=== PATIENT | male | born 1980 | race Caucasian/White ===

== ENCOUNTER 2019-05-07 09:54 | Emergency (ER) | payer BC, OTHER ==
--- NOTE | 2019-05-07 11:25 | RAD REPORT ---
EXAM DESCRIPTION: RAD - Hand Left 3 View - 05/07/2019 11:13 am CLINICAL HISTORY: crush injury L 5th digit;Pain COMPARISON: No comparisons FINDINGS: Soft tissue swelling affects the fifth finger. No fracture seen.
[2019-05-07] MEDS ORDERED: LIDOCAINE 1% MPF 5 ML VIAL ONE (11:47)
--- NOTE | 2019-05-07 12:39 | ER ---
Nurse's Notes [facility] Name: Rene Killian Jr Age: 38 yrs Sex: Male : 1980 Arrival Date: 05/07/2019 Time: 09:55 Bed 10 Private MD: Diagnosis: Laceration without foreign body of left little finger without damage to nail;Crushing injury of left little finger Presentation: 05/07 10:33 Presenting complaint: Patient states: Smashed L fifth digit between two heavy metal ss storage containers at 0845 this AM. Transition of care: patient was not received from another setting of care. Onset of symptoms was May 07, 2019. Risk Assessment: Do you want to hurt yourself or someone else? Patient reports no desire to harm self or others. Initial Sepsis Screen: Does the patient meet any 2 criteria? No. Patient's initial sepsis screen is negative. Does the patient have a suspected source of infection? No. Patient's initial sepsis screen is negative. Care prior to arrival: None. 10:33 Method Of Arrival: Ambulatory ss 10:33 Acuity: ERLINDA 4 ss Triage Assessment: 11:00 General: Appears in no apparent distress. Injury Description: Crush injury. tw2 Historical: - Allergies: 10:35 HYDROCODONE (Hives); ss 10:35 Latex, Natural Rubber; ss 10:35 PROPOFOL; ss 10:35 Tape; ss - PMHx: 10:35 Asthma; Bronchitis; Cellulitis; Hypertension; Pneumonia; ss - PSHx: 10:35 Knee surgery; Appendectomy; ss - Immunization history:: Last tetanus immunization: up to date < 10 years ago. - Social history:: Smoking status: Patient uses tobacco products, chewing tobacco. - Ebola Screening: : Patient denies exposure to infectious person Patient denies travel to an Ebola-affected area in the 21 days before illness onset. Screenin:05 Abuse screen: Denies threats or abuse. Nutritional screening: No deficits noted. tw2 Tuberculosis screening: No symptoms or risk factors identified. Fall Risk None identified. Assessment: 11:00 General: Appears in no apparent distress. obese, Behavior is calm, cooperative, tw2 appropriate for age. Pain: Complains of pain in dorsal aspect of distal phalanx of left little finger, dorsal aspect of middle phalanx of left little finger, palmar aspect of distal phalanx of left little finger and palmar aspect of middle phalanx of left little finger. Neuro: Level of Consciousness is awake, alert, obeys commands, Oriented to person, place, time, situation. Cardiovascular: Patient's skin is warm and dry. Respiratory: Airway is patent Respiratory effort is even, unlabored, Respiratory pattern is regular, symmetrical. Derm: laceration noted on medial border of 5th finger of left hand. Musculoskeletal: Swelling present in dorsal aspect of distal phalanx of left little finger, dorsal aspect of middle phalanx of left little finger, palmar aspect of distal phalanx of left little finger and palmar aspect of middle phalanx of left little finger Reports pain in dorsal aspect of distal phalanx of left little finger, dorsal aspect of middle phalanx of left little finger, palmar aspect of distal phalanx of left little finger, palmar aspect of middle phalanx of left little finger and left little fingernail. Musculoskeletal: Circulation, motion, and sensation intact. 13:04 Reassessment: Patient appears in no apparent distress at this time. Patient and/or tw2 family updated on plan of care and expected duration. Pain level reassessed. Patient is alert, oriented x 3, equal unlabored respirations, skin warm/dry/pink. Vital Signs: 10:35 BP 152 / 93; Pulse 68; Resp 17; Temp 98.4(TE); Pulse Ox 97% on R/A; Weight 158.76 kg; ss Height 5 ft. 10 in. (177.80 cm); Pain 7/10; 10:35 Body Mass Index 50.22 (158.76 kg, 177.80 cm) ED Course: 09:55 Patient arrived in ED. as 10:34 Triage completed. ss 10:35 Arm band placed on right wrist. ss 10:59 Bed in low position. Call light in reach. Adult w/ patient. tw2 11:05 Shyanne Olvera RN is Primary Nurse. tw2 11:07 Nathan Meraz NP is PHCP. pm1 11:07 Remi Pardo MD is Attending Physician. pm1 11:15 XRAY Hand LEFT 3 View In Process Unspecified. EDMS 11:35 Patient did not have IV access during this emergency room visit. Wound care: located on tw2 left hand was cleaned with with NS at this time, pt tolerated well.. 12:38 Imtiaz Lowe MD is Referral Physician. pm1 13:04 Assist provider with laceration repair on left little fingernail and palmar aspect of tw2 middle phalanx of left little finger and palmar aspect of distal phalanx of left little finger and dorsal aspect of middle phalanx of left little finger and dorsal aspect of distal phalanx of left little finger that was 2.5 cm. or less using sutures. Set up tray. Performed by Nathan Meraz [employer]CH[employer]ISING Dressed with 4X4s, Neosporin, Patient tolerated well. 17:10 Primary Nurse role handed off by Shyanne Olvera RN tw2 Administered Medications: 12:22 Drug: Lidocaine (1 %) 5 ml Volume: 5 ml; Route: Infiltration; tw2 Outcome: 12:39 Discharge ordered by MD. pm1 13:05 Discharged to home ambulatory. tw2 13:05 Condition: stable 13:05 Discharge instructions given to patient, Instructed on discharge instructions, follow up and referral plans. medication usage, wound care, Demonstrated understanding of instructions, follow-up care, medications, wound care, Prescriptions given X 1. 13:07 Patient left the ED. tw2 17:13 Patient left the ED. tw2 Signatures: Dispatcher [employer] EDMS Peg Chua Shelby, RN RN ss Marinas, Patrick, NP [employer] pm1 Shyanne Olvera RN RN tw2 Corrections: (The following items were deleted from the chart) 13:05 13:04 No provider procedures requiring assistance completed. tw2 tw2
--- NOTE | 2019-05-07 12:40 | EDPHYS ---
Physician Documentation [facility] Name: Rene Killian Jr Age: 38 yrs Sex: Male : 1980 Arrival Date: 05/07/2019 Time: 09:55 Bed 10 Private MD: ED Physician Remi Pardo HPI: 05/07 11:37 This 38 yrs old Male presents to ER via Ambulatory with complaints of Left pm1 Little Finger Injury. 11:37 Trauma demographics: Location of Injury: The injury occurred at work. Mechanism of pm1 injury: Crush injury: from from a heavy object. Associated injuries: The patient sustained left little finger, laceration, swelling. Onset: The symptoms/episode began/occurred just prior to arrival. The patient has not experienced similar symptoms in the past. Patient was moving heavy containers and accidentally crushed his left little finger between two of them resulting in swelling and tenderness to the distal aspect of fifth little finger, laceration to lateral aspect of DIP and laceration to palmar aspect of left fifth distal phalanx . Historical: - Allergies: 10:35 HYDROCODONE (Hives); ss 10:35 Latex, Natural Rubber; ss 10:35 PROPOFOL; ss 10:35 Tape; ss - PMHx: 10:35 Asthma; Bronchitis; Cellulitis; Hypertension; Pneumonia; ss - PSHx: 10:35 Knee surgery; Appendectomy; ss - Immunization history:: Last tetanus immunization: up to date < 10 years ago. - Social history:: Smoking status: Patient uses tobacco products, chewing tobacco. - Ebola Screening: : Patient denies exposure to infectious person Patient denies travel to an Ebola-affected area in the 21 days before illness onset. ROS: 11:37 Constitutional: Negative for fever, chills, and weight loss, Cardiovascular: Negative pm1 for chest pain, palpitations, and edema, Respiratory: Negative for shortness of breath, cough, wheezing, and pleuritic chest pain, Abdomen/GI: Negative for abdominal pain, nausea, vomiting, diarrhea, and constipation, Back: Negative for injury and pain. 11:37 Neuro: Negative for headache, weakness, numbness, tingling, and seizure. 11:37 MS/extremity: Positive for pain, swelling, tenderness, of the distal phalanx of left little finger, inability to bend left 5th finger DIP joint, Negative for deformity. 11:37 Skin: Positive for laceration(s), of the palmar aspect of distal phalanx of left little finger and lateral aspect of DIP of left fifth finger. 11:37 All other systems are negative. pm1 Exam: 11:37 Constitutional: This is a well developed, well nourished patient who is awake, alert, pm1 and in no acute distress. Head/Face: Normocephalic, atraumatic. Neck: Trachea midline, no thyromegaly or masses palpated, and no cervical lymphadenopathy. Supple, full range of motion without nuchal rigidity, or vertebral point tenderness. No Meningismus. 11:37 Chest/axilla: Normal chest wall appearance and motion. Nontender with no deformity. pm1 No lesions are appreciated. Cardiovascular: Regular rate and rhythm with a normal S1 and S2. No gallops, murmurs, or rubs. Normal PMI, no JVD. No pulse deficits. Respiratory: Lungs have equal breath sounds bilaterally, clear to auscultation and percussion. No rales, rhonchi or wheezes noted. No increased work of breathing, no retractions or nasal flaring. Back: No spinal tenderness. No costovertebral tenderness. Full range of motion. 11:37 Musculoskeletal/extremity: Extremities: grossly normal except: noted in the distal phalanx of left little finger: swelling, tenderness, laceration to lateral aspect of DIP left little finger and palmar aspect of distal phalanx of left fifth finger. Vital Signs: 10:35 BP 152 / 93; Pulse 68; Resp 17; Temp 98.4(TE); Pulse Ox 97% on R/A; Weight 158.76 kg; ss Height 5 ft. 10 in. (177.80 cm); Pain 7/10; 10:35 Body Mass Index 50.22 (158.76 kg, 177.80 cm) ss Laceration: 12:36 Wound Repair of 2.5cm ( 1.0in ) subcutaneous laceration to palmar aspect of distal pm1 phalanx of left little finger. Linear shaped.. Distal neuro/vascular/tendon intact. Anesthesia: Digital block administered with 2 mls of 1% lidocaine. Wound prep: Extensive cleansing with hibiclenz by nurse, Wound irrigation, Wound explored extensively, Copious irrigation. Skin closed with 7 5-0 Prolene using simple sutures and sterile technique. Dressed with finger splint and neosporin. Patient tolerated well. MDM: 11:08 Patient medically screened. [facility] 12:36 Data reviewed: vital signs. Data interpreted: Pulse oximetry: on room air is 97 %. pm1 Interpretation: normal. Counseling: I had a detailed discussion with the patient and/or guardian regarding: the historical points, exam findings, and any diagnostic results supporting the discharge/admit diagnosis, radiology results, the need for outpatient follow up, for definitive care, a hand specialist, to return to the emergency department if symptoms worsen or persist or if there are any questions or concerns that arise at home. 05/07 10:36 Order name: XRAY Hand LEFT 3 View; Complete Time: 11:37 ss 05/07 11:20 Order name: Ice pack; Complete Time: 11:20 pm1 05/07 11:46 Order name: Prolene, Sutures; Complete Time: 12:54 pm1 05/07 11:46 Order name: Dressing - Wound; Complete Time: 12:54 pm1 05/07 11:46 Order name: Gloves, Sterile; Complete Time: 11:55 pm1 05/07 11:46 Order name: Setup Suture Tray; Complete Time: 11:55 pm1 05/07 12:45 Order name: Splint - Finger; Complete Time: 12:54 pm1 Administered Medications: 12:22 Drug: Lidocaine (1 %) 5 ml Volume: 5 ml; Route: Infiltration; tw2 Disposition: 05/08 07:06 Co-signature as Attending Physician, Remi Pardo MD I agree with the assessment and [facility] plan of care. Disposition: 05/07/19 12:39 Discharged to Home. Impression: Crushing injury of left little finger, Laceration without foreign body of left little finger without damage to nail. - Condition is Stable. - Discharge Instructions: Laceration Care, Adult, Crush Injury of the Hand. - Prescriptions for Keflex 500 mg Oral Capsule - take 1 capsule by ORAL route every 6 hours for 10 days; 40 capsule. - Medication Reconciliation Form, Thank You Letter, Antibiotic Education, Prescription Opioid Use, Work release form form. - Follow up: Emergency Department; When: As needed; Reason: Worsening of condition. Follow up: Imtiaz Lowe MD; When: 2 - 3 days; Reason: Recheck today's complaints, Continuance of care, Re-evaluation by your physician. - Problem is new. - Symptoms have improved. Signatures: Dispatcher [employer] EDMS Remi Pardo MD MD cha Smirch, Shelby, AJ RN ss Nathan Meraz, [employer]ER pm1 Shyanne Olvera RN RN tw2 Corrections: (The following items were deleted from the chart) 05/07 12:59 12:39 05/07/2019 12:39 Discharged to Home. Impression: Crushing injury of left middle pm1 finger; Laceration without foreign body of left little finger without damage to nail. Condition is Stable. Forms are Work release form, Medication Reconciliation Form, Thank You Letter, Antibiotic Education, Prescription Opioid Use. Follow up: Emergency Department; When: As needed; Reason: Worsening of condition. Follow up: Imtiaz Lowe; When: 2 - 3 days; Reason: Recheck today's complaints, Continuance of care, Re-evaluation by your physician. Problem is new. Symptoms have improved. pm1 13:07 12:59 05/07/2019 12:39 Discharged to Home. Impression: Crushing injury of left little tw2 finger; Laceration without foreign body of left little finger without damage to nail. Condition is Stable. Discharge Instructions: Laceration Care, Adult, Crush Injury of the Hand. Prescriptions for Keflex 500 mg Oral Capsule - take 1 capsule by ORAL route every 6 hours for 10 days; 40 capsule. and Forms are Work release form, Medication Reconciliation Form, Thank You Letter, Antibiotic Education, Prescription Opioid Use. Follow up: Emergency Department; When: As needed; Reason: Worsening of condition. Follow up: Imtiaz Lowe; When: 2 - 3 days; Reason: Recheck today's complaints, Continuance of care, Re-evaluation by your physician. Problem is new. Symptoms have improved. pm1 17:13 13:07 05/07/2019 12:39 Discharged to Home. Impression: Crushing injury of left little tw2 fingerLaceration without foreign body of left little finger without damage to nail. Condition is Stable. Discharge Instructions: Laceration Care, Adult, Crush Injury of the Hand. Prescriptions for Keflex 500 mg Oral Capsule - take 1 capsule by ORAL route every 6 hours for 10 days; 40 capsule. and Forms are Work release form, Medication Reconciliation Form, Thank You Letter, Antibiotic Education, Prescription Opioid Use. Follow up: Emergency Department; When: As needed; Reason: Worsening of condition. Follow up: Imtiaz Lowe; When: 2 - 3 days; Reason: Recheck today's complaints, Continuance of care, Re-evaluation by your physician. Problem is new. Symptoms have improved. tw2
[2019-05-07 13:26] VITALS: BP 152/93; TEMP 98.4; O2SAT 97
== END 2019-05-07 17:13 | disposition home or self-care (01) ==
LOC: ER 09:54
PROC: 0JQK0ZZ Repair Left Hand Subcutaneous Tissue and Fascia, Open Approach (ICD-10-PCS; principal; 2019-05-07)
DX: S61.217A Laceration without foreign body of left little finger without damage to nail, initial encounter (principal); W23.0XXA Caught, crushed, jammed, or pinched between moving objects, initial encounter; Y93.89 Activity, other specified; Y92.9 Unspecified place or not applicable
CPT/HCPCS: 99284

== ENCOUNTER 2019-05-10 17:22 | Emergency (ER) | payer OTHER ==
--- NOTE | 2019-05-10 17:58 | ER ---
Nurse's Notes [facility] Name: Rene Killian Jr Age: 38 yrs Sex: Male : 1980 Arrival Date: 05/10/2019 Time: 17:23 Bed Waiting Private MD: Diagnosis: Encounter for change or removal of nonsurgical wound dressing Presentation: 05/10 17:50 Presenting complaint: Patient states: On Monday something fell on my left pinky and la1 lavern looked at it and wanted me to be seen here. Transition of care: patient was not received from another setting of care. Onset of symptoms was May 10, 2019. Risk Assessment: Do you want to hurt yourself or someone else? Patient reports no desire to harm self or others. Initial Sepsis Screen: Does the patient meet any 2 criteria? No. Patient's initial sepsis screen is negative. Does the patient have a suspected source of infection? No. Patient's initial sepsis screen is negative. Care prior to arrival: None. 17:50 Method Of Arrival: Ambulatory la1 17:50 Acuity: ERLINDA 4 la1 Historical: - Immunization history:: Adult Immunizations up to date. - Social history:: Smoking status: Patient/guardian denies using tobacco. - Ebola Screening: : No symptoms or risks identified at this time. Screenin:55 Abuse screen: Denies threats or abuse. Nutritional screening: No deficits noted. la1 Tuberculosis screening: No symptoms or risk factors identified. Fall Risk None identified. Assessment: 17:52 General: Appears in no apparent distress. Behavior is calm, cooperative. Pain: la1 Complains of pain in dorsal aspect of middle phalanx of left little finger and palmar aspect of middle phalanx of left little finger. Neuro: Level of Consciousness is awake, alert, obeys commands, Oriented to person, place, time, situation. Cardiovascular: Capillary refill < 3 seconds Patient's skin is warm and dry. Respiratory: Airway is patent Respiratory effort is even, unlabored, Respiratory pattern is regular, symmetrical. Musculoskeletal: Circulation, motion, and sensation intact. Capillary refill < 3 seconds, is brisk, in bilateral wound to pinky well approximated, slightly limited ROM. Vital Signs: 17:51 BP 147 / 97; Pulse 78; Resp 16; Temp 98.3; Pulse Ox 100% on R/A; la1 ED Course: 17:23 Patient arrived in ED. as 17:50 Triage completed. la1 17:50 Arm band placed on right wrist. la1 17:53 Gretchen Cantu FNP-C [facility]. snw 17:53 Mandeep Baker MD is Attending Physician. snw 17:55 Patient has correct armband on for positive identification. la1 17:56 Imtiaz Lowe MD is Referral Physician. snw 18:28 No provider procedures requiring assistance completed. Patient did not have IV access la1 during this emergency room visit. Administered Medications: No medications were administered Outcome: 17:57 Discharge ordered by MD. snw 18:28 Discharged to home ambulatory. la1 18:28 Condition: stable 18:28 Discharge instructions given to patient, Instructed on discharge instructions, follow up and referral plans. medication usage, Demonstrated understanding of instructions, follow-up care, medications, Prescriptions given X 1. 18:28 Patient left the ED. la1 Signatures: Gretchen Cantu FNP-C [employer]-CsnPeg He Lee, RN RN la1
--- NOTE | 2019-05-10 17:58 | EDPHYS ---
Physician Documentation [facility] Name: Rene Killian Jr Age: 38 yrs Sex: Male : 1980 Arrival Date: 05/10/2019 Time: 17:23 Bed Waiting Private MD: ED Physician Mandeep Baker HPI: 05/10 20:59 This 38 yrs old Male presents to ER via Ambulatory with complaints of Wound snw Check. 20:59 Patient presents to ED for recheck of: laceration. The affected area is on the palmar snw aspect of distal phalanx of left little finger. Previous treatment: The patient was initially treated 3 day(s) ago. Progress: The patient reports excellent improvement in the affected area. There has been resolution, improvement, or non-development of any drainage, fever, pain, redness or swelling. The patient has not experienced similar symptoms in the past. The patient has not recently seen a physician. Historical: - Immunization history:: Adult Immunizations up to date. - Social history:: Smoking status: Patient/guardian denies using tobacco. - Ebola Screening: : No symptoms or risks identified at this time. ROS: 20:58 Constitutional: Negative for fever, chills, and weight loss, Eyes: Negative for injury, snw pain, redness, and discharge, ENT: Negative for injury, pain, and discharge, Neck: Negative for injury, pain, and swelling, Cardiovascular: Negative for chest pain, palpitations, and edema, Respiratory: Negative for shortness of breath, cough, wheezing, and pleuritic chest pain, Abdomen/GI: Negative for abdominal pain, nausea, vomiting, diarrhea, and constipation, Back: Negative for injury and pain, : Negative for injury, bleeding, discharge, and swelling, MS/Extremity: Negative for injury and deformity, Neuro: Negative for headache, weakness, numbness, tingling, and seizure, Psych: Negative for depression, anxiety, suicide ideation, homicidal ideation, and hallucinations. 20:58 Skin: Positive for pt states left 5th finger has been draining and "meat was hanging out" around the sutures. Exam: 17:54 Constitutional: This is a well developed, well nourished patient who is awake, alert, snw and in no acute distress. Head/Face: Normocephalic, atraumatic. Eyes: Pupils equal round and reactive to light, extra-ocular motions intact. Lids and lashes normal. Conjunctiva and sclera are non-icteric and not injected. Cornea within normal limits. Periorbital areas with no swelling, redness, or edema. ENT: Nares patent. No nasal discharge, no septal abnormalities noted. Tympanic membranes are normal and external auditory canals are clear. Oropharynx with no redness, swelling, or masses, exudates, or evidence of obstruction, uvula midline. Mucous membranes moist. Neck: Trachea midline, no thyromegaly or masses palpated, and no cervical lymphadenopathy. Supple, full range of motion without nuchal rigidity, or vertebral point tenderness. No Meningismus. Chest/axilla: Normal chest wall appearance and motion. Nontender with no deformity. No lesions are appreciated. Cardiovascular: Regular rate and rhythm with a normal S1 and S2. No gallops, murmurs, or rubs. Normal PMI, no JVD. No pulse deficits. Respiratory: Lungs have equal breath sounds bilaterally, clear to auscultation and percussion. No rales, rhonchi or wheezes noted. No increased work of breathing, no retractions or nasal flaring. Abdomen/GI: Soft, non-tender, with normal bowel sounds. No distension or tympany. No guarding or rebound. No evidence of tenderness throughout. Back: No spinal tenderness. No costovertebral tenderness. Full range of motion. Skin: Warm, dry with normal turgor. Normal color with no rashes, no lesions, and no evidence of cellulitis. Recently sutured wound to left 5th finger with sutures intact, no erythema, no discharge. Discussed with Dr. Lowe and he recommends re-eval Monday at 0900 in his office - leave sutures in place MS/ Extremity: Pulses equal, no cyanosis. Neurovascular intact. Full, normal range of motion. Neuro: Awake and alert, GCS 15, oriented to person, place, time, and situation. Cranial nerves II-XII grossly intact. Motor strength 5/5 in all extremities. Sensory grossly intact. Cerebellar exam normal. Normal gait. Psych: Awake, alert, with orientation to person, place and time. Behavior, mood, and affect are within normal limits. Vital Signs: 17:51 BP 147 / 97; Pulse 78; Resp 16; Temp 98.3; Pulse Ox 100% on R/A; la1 MDM: 17:57 Patient medically screened. snw 17:58 Data reviewed: vital signs, nurses notes. Data interpreted: Pulse oximetry: on room air snw is 100 %. Interpretation: normal. Counseling: I had a detailed discussion with the patient and/or guardian regarding: the historical points, exam findings, and any diagnostic results supporting the discharge/admit diagnosis, the presence of at least one elevated blood pressure reading (>120/80) during this emergency department visit, the need for outpatient follow up, to return to the emergency department if symptoms worsen or persist or if there are any questions or concerns that arise at home. Physician consultation: Imtiaz Lowe MD was called at 17:59, was contacted at 17:59, reassurance and f/u in office on Monday at 0900. Administered Medications: No medications were administered Disposition: 05/11 07:08 Co-signature as Attending Physician, Mandeep Baker MD. rn Disposition: 05/10/19 17:57 Discharged to Home. Impression: Encounter for change or removal of nonsurgical wound dressing. - Condition is Stable. - Discharge Instructions: How to Change Your Dressing, Stitches, Brigido, or Adhesive Wound Closure, Wound Check, Incision Care, Adult. - Prescriptions for Tylenol- Codeine #3 300-30 mg Oral Tablet - take 2 tablets by ORAL route every 6 hours As needed; 10 tablet. - Medication Reconciliation Form, Thank You Letter, Antibiotic Education, Prescription Opioid Use form. - Follow up: Imtiaz Lowe MD; When: Monday at 0900; Reason: Recheck today's complaints, Continuance of care, Re-evaluation by your physician. Signatures: Gretchen Cantu, CUSTOM HARVESTER-C CUSTOM HARVESTER-Csnw Mandeep Baker MD MD rn Attema, Lee, RN RN la1 Corrections: (The following items were deleted from the chart) 05/10 18:28 17:57 05/10/2019 17:57 Discharged to Home. Impression: Encounter for change or removal la1 of nonsurgical wound dressing. Condition is Stable. Forms are Medication Reconciliation Form, Thank You Letter, Antibiotic Education, Prescription Opioid Use. Follow up: Imtiaz Lowe; When: Monday at 0900; Reason: Recheck today's complaints, Continuance of care, Re-evaluation by your physician. snw
[2019-05-10 18:41] VITALS: BP 147/97; TEMP 98.3; O2SAT 100
== END 2019-05-10 18:28 | disposition home or self-care (01) ==
LOC: ER 17:22
DX: Z48.00 Encounter for change or removal of nonsurgical wound dressing (principal)
CPT/HCPCS: 99282

== ENCOUNTER 2019-06-16 07:22 | Emergency (ER) | payer BC, OTHER ==
[2019-06-16] MEDS ORDERED: ONDANSETRON 4 MG/2 ML VIAL ONE (07:55)
[2019-06-16] MEDS ORDERED: NA CHLORIDE 0.9% 1,000 ML ONE (07:55)
[2019-06-16] MEDS ORDERED: MORPHINE 4 MG/ML SYR ONE (07:55)
[2019-06-16 08:16] LABS: Absolute Lymphocytes (CBC) 0.3 K/uL (0.7-4.9); Basophils % 0.4 % (0-1.3); Hematocrit 49.9 % (39.6-49.0); MPV 8.2 fL (7.6-11.3); RBC Red Blood Cell Count 5.37 M/uL (4.33-5.43)
[2019-06-16 08:34] LABS: ALT/SGPT 52 U/L (12-78); AST/SGOT 29 U/L (15-37); Albumin 4.1 g/dL (3.4-5.0); Alkaline Phosphatase 93 U/L (45-117); BUN Blood Urea Nitrogen 20 mg/dL (7-18); Bicarbonate 26 mmol/L (21-32); Bilirubin Direct 0.2 mg/dL (0-0.2); Bilirubin Total 0.7 mg/dL (0.2-1.0); Glucose Level 144 mg/dL (74-106); Lipase 73 U/L (73-393); Protein, Total 7.8 g/dL (6.4-8.2); Sodium Level 139 mmol/L (136-145)
[2019-06-16 09:07] LABS: Blood Morphology Comment NOT SEEN (NOT SEEN); Platelet Estimate ADEQ
--- NOTE | 2019-06-16 09:08 | RAD REPORT ---
EXAM DESCRIPTION: CT - Abdomen Pelvis W Contrast - 06/16/2019 8:55 am CLINICAL HISTORY: EPIGASTRIC PAIN, abdominal and pelvic pain COMPARISON: CT imaging January 2015 TECHNIQUE: Biphasic, helical CT imaging of the abdomen and pelvis was performed following 100 ml non -ionic IV contrast. No oral contrast. All CT scans are performed using dose optimization technique as appropriate and may include automated exposure control or mA/KV adjustment according to patient size. FINDINGS: Calcified pleural plaquing changes posterior gutter on the left have not changed. No acute lung base finding. No pericardial thickening or effusion. Liver attenuation is borderline to mild fatty infiltrated. No focal liver lesion. No splenomegaly or focal splenic finding. No pancreatic or peripancreatic abnormality seen. Distended gallbladder noted. No biliary tree dilata tion. Gallstones can be occult on CT imaging. Symmetric renal function is seen with no hydronephrosis or suspicious renal mass. No pyelonephritis o r acute parenchymal process. Renal parenchyma is similar to comparison study. Prostate gland and semi nal vesicles are normal. No urinary bladder abnormality. No adrenal abnormalities. Moderate amount of fluid is retained within the stomach. No gastric wall thickening or mass identifie d. No duodenal abnormality seen. Patient has a few small sub centimeter mesenteric lymph nodes in the central mesenteries. Appendix is not clearly defined. No indirect evidence for appendicitis. The ryan endix is believed to be surgically absent based on history. No free air, free fluid or inflammatory stranding. No mass or bulky lymphadenopathy. Patient has a small fat filled left inguinal hernia similar to comparison. No acute finding. No suspicious bony findings. IMPRESSION: CT imaging shows no acute finding. Gallbladder is distended but not dilated. Gallstones can be occult on CT imaging. No biliary abnormal ity seen. Borderline to mild fatty infiltration the liver.
--- NOTE | 2019-06-16 10:10 | ER ---
Nurse's Notes [facility] Name: Rene Killian Jr Age: 39 yrs Sex: Male : 1980 Arrival Date: 06/16/2019 Time: 07:25 Bed 20 Private MD: None, None Diagnosis: Vomiting;Diarrhea, unspecified;Unspecified abdominal pain Presentation: 06/16 07:35 Presenting complaint: states: pt has been vomiting and having diarrhea since about iw 2 this morning,ate fried shrimp for dinner ,not tolerating fluids. Transition of care: patient was not received from another setting of care. Onset of symptoms was June 16, 2019. Risk Assessment: Do you want to hurt yourself or someone else? Patient reports no desire to harm self or others. Care prior to arrival: None. 07:35 Method Of Arrival: Ambulatory iw 07:35 Acuity: ERLINDA 3 iw 08:08 Initial Sepsis Screen: Does the patient meet any 2 criteria? No. Patient's initial em sepsis screen is negative. Does the patient have a suspected source of infection? No. Patient's initial sepsis screen is negative. Historical: - Allergies: 07:40 Latex, Natural Rubber; iw 07:40 Hydrocodone-Acetaminophen; iw 07:40 Tape; iw 07:40 PROPOFOL; iw - Home Meds: 07:52 losartan oral oral once daily [Active]; Breo Ellipta inhalation inhalation once daily iw [Active]; - PMHx: 07:40 Asthma; Hypertension; Bronchitis; Pneumonia; Cellulitis; iw - PSHx: 07:40 Appendectomy; Knee surgery; iw - Ebola Screening: : Patient negative for fever greater than or equal to 101.5 degrees Fahrenheit, and additional compatible Ebola Virus Disease symptoms Patient denies exposure to infectious person Patient denies travel to an Ebola-affected area in the 21 days before illness onset No symptoms or risks identified at this time. Screenin:05 Abuse screen: Denies threats or abuse. Nutritional screening: No deficits noted. em Tuberculosis screening: No symptoms or risk factors identified. Fall Risk None identified. Assessment: 07:55 General: Appears in no apparent distress. comfortable, Behavior is calm, cooperative, em Denies fever. Pain: Complains of pain in right upper quadrant and left upper quadrant Pain currently is 0 out of 10 on a pain scale. at worst was 8 out of 10 on a pain scale. Pain began 4 hours ago. Neuro: Level of Consciousness is awake, alert, obeys commands, Oriented to person, place, time, situation, Appropriate for age. Cardiovascular: Capillary refill < 3 seconds Patient's skin is warm and dry. Respiratory: Airway is patent Respiratory effort is even, unlabored, Respiratory pattern is regular, symmetrical. GI: Abdomen is round non-distended, Bowel sounds present X 4 quads. Abd is soft X 4 quads Abdomen is tender to palpation in right upper quadrant and left upper quadrant Reports diarrhea, nausea, vomiting, Patient currently denies bloody stool. : Denies burning with urination. Derm: Skin is intact, is healthy with good turgor, Skin is pink, warm \T\ dry. Musculoskeletal: Capillary refill < 3 seconds, Range of motion: intact in all extremities. Vital Signs: 07:47 Pulse 100; Resp 18; Temp 98.9; Pulse Ox 97% on R/A; iw 08:04 BP 138 / 78; Pulse 89; Resp 18; Pulse Ox 96% on R/A; Pain 8/10; em 09:00 BP 118 / 70; Pulse 86; Resp 18; Pulse Ox 99% on R/A; Pain 2/10; em 10:00 BP 118 / 82; Pulse 92; Resp 16; Pulse Ox 95% on R/A; Pain 2/10; em ED Course: 07:25 Patient arrived in ED. mr 07:25 None, None is Private Physician. mr 07:32 Wilfrid Tom, AJ is Primary Nurse. bp 07:33 Nathan Meraz NP is PHCP. pm1 07:33 Catalino Angulo MD is Attending Physician. pm1 07:37 Triage completed. iw 07:51 Arm band placed on. iw 07:53 Radiology exam delayed due to lab results not completed at this time. (BUN/Creatinine). bq 08:01 Initial lab(s) drawn, by me, sent to lab. Inserted saline lock: 20 gauge in left jd2 antecubital area, using aseptic technique. Blood collected. 08:05 Patient has correct armband on for positive identification. Bed in low position. Call em light in reach. Adult w/ patient. Pulse ox on. NIBP on. 08:55 CT completed. Patient tolerated procedure well. Patient moved back from CT. mw3 08:55 CT Abd/Pelvis - IV Contrast Only In Process Unspecified. EDMS 10:35 No provider procedures requiring assistance completed. IV discontinued, intact, em bleeding controlled, No redness/swelling at site. Pressure dressing applied. Administered Medications: 07:58 Drug: NS 0.9% 1000 ml Route: IV; Rate: 1000 ml; Site: left antecubital; iw 10:33 Follow up: IV Status: Order to discontinue infusion; IV Intake: 800ml em 07:59 Drug: Zofran 4 mg Route: IVP; Site: left antecubital; iw 08:21 Follow up: Response: No adverse reaction; Nausea is decreased em 08:02 Drug: morphine 4 mg Route: IVP; Site: left antecubital; iw 08:22 Follow up: Response: No adverse reaction; Marked relief of symptoms; Pain is decreased em 10:28 Drug: Bentyl 20 mg Route: PO; em 10:33 Follow up: Response: Medication administered at discharge. em Intake: 10:33 IV: 800ml; Total: 800ml. em Outcome: 10:09 Discharge ordered by MD. pm1 10:35 Discharged to home ambulatory, with family. em 10:35 Condition: good 10:35 Discharge instructions given to patient, family, Instructed on discharge instructions, follow up and referral plans. medication usage, Demonstrated understanding of instructions, follow-up care, medications, Prescriptions given X 2. 10:36 Patient left the ED. em Signatures: Dispatcher [employer] EDNY Cristian Ashlie mr ShaunAkanksha, Stanley, TEACHER EARLY CHILDHOOD DEVELOPMENT TEACHER EARLY CHILDHOOD DEVELOPMENT em Lanette Verma, Nathan Thompson RN, CORINE ZIPPER CUTTER pm1 Aldo Soriano Brian, RN RN bp Willis, Michelle mw3
--- NOTE | 2019-06-16 10:10 | EDPHYS ---
Physician Documentation [facility] Name: Rene Killian Jr Age: 39 yrs Sex: Male : 1980 Arrival Date: 06/16/2019 Time: 07:25 Bed 20 Private MD: None, None ED Physician Catalino Angulo HPI: 06/16 08:06 This 39 yrs old Male presents to ER via Ambulatory with complaints of pm1 Abdominal Pain, Vomiting/Diarrhea. 08:06 The patient presents with abdominal pain that is diffuse. Onset: The symptoms/episode pm1 began/occurred this morning, at 02:00. The symptoms do not radiate. Associated signs and symptoms: Pertinent positives: nausea, vomiting, and diarrhea, Pertinent negatives: chest pain, constipation, dysuria, fever, shortness of breath. The symptoms are described as crampy. Modifying factors: The symptoms are alleviated by nothing, the symptoms are aggravated by nothing. Severity of pain: in the emergency department the pain is unchanged. Patient with onset of abdominal pain, vomiting and diarrhea since 0200 this AM. Possible cause of diarrhea is shrimp that he ate at a restaurant last night. Historical: - Allergies: 07:40 Latex, Natural Rubber; iw 07:40 Hydrocodone-Acetaminophen; iw 07:40 Tape; iw 07:40 PROPOFOL; iw - Home Meds: 07:52 losartan oral oral once daily [Active]; Breo Ellipta inhalation inhalation once daily iw [Active]; - PMHx: 07:40 Asthma; Hypertension; Bronchitis; Pneumonia; Cellulitis; iw - PSHx: 07:40 Appendectomy; Knee surgery; iw - Ebola Screening: : Patient negative for fever greater than or equal to 101.5 degrees Fahrenheit, and additional compatible Ebola Virus Disease symptoms Patient denies exposure to infectious person Patient denies travel to an Ebola-affected area in the 21 days before illness onset No symptoms or risks identified at this time. ROS: 08:06 Constitutional: Negative for fever, chills, and weight loss, Eyes: Negative for injury, pm1 pain, redness, and discharge, ENT: Negative for injury, pain, and discharge, Neck: Negative for injury, pain, and swelling, Cardiovascular: Negative for chest pain, palpitations, and edema, Respiratory: Negative for shortness of breath, cough, wheezing, and pleuritic chest pain. 08:06 Back: Negative for injury and pain, : Negative for injury, bleeding, discharge, and swelling, MS/Extremity: Negative for injury and deformity, Skin: Negative for injury, rash, and discoloration, Neuro: Negative for headache, weakness, numbness, tingling, and seizure. 08:06 Abdomen/GI: Positive for abdominal pain, nausea, vomiting, and diarrhea, Negative for constipation, hematemesis, black/tarry stool, rectal bleeding. Exam: 08:06 Constitutional: This is a well developed, well nourished patient who is awake, alert, pm1 and in no acute distress. Head/Face: Normocephalic, atraumatic. Neck: Trachea midline, no thyromegaly or masses palpated, and no cervical lymphadenopathy. Supple, full range of motion without nuchal rigidity, or vertebral point tenderness. No Meningismus. Chest/axilla: Normal chest wall appearance and motion. Nontender with no deformity. No lesions are appreciated. Cardiovascular: Regular rate and rhythm with a normal S1 and S2. No gallops, murmurs, or rubs. Normal PMI, no JVD. No pulse deficits. Respiratory: Lungs have equal breath sounds bilaterally, clear to auscultation and percussion. No rales, rhonchi or wheezes noted. No increased work of breathing, no retractions or nasal flaring. 08:06 Back: No spinal tenderness. No costovertebral tenderness. Full range of motion. Skin: Warm, dry with normal turgor. Normal color with no rashes, no lesions, and no evidence of cellulitis. MS/ Extremity: Pulses equal, no cyanosis. Neurovascular intact. Full, normal range of motion. 08:06 Abdomen/GI: Inspection: obese Bowel sounds: normal, Palpation: abdomen is soft and non-tender, in all quadrants, mass, is not appreciated, rebound tenderness, is not appreciated. 08:06 Neuro: Orientation: is normal, Motor: is normal, moves all fours. Vital Signs: 07:47 Pulse 100; Resp 18; Temp 98.9; Pulse Ox 97% on R/A; iw 08:04 BP 138 / 78; Pulse 89; Resp 18; Pulse Ox 96% on R/A; Pain 8/10; em 09:00 BP 118 / 70; Pulse 86; Resp 18; Pulse Ox 99% on R/A; Pain 2/10; em 10:00 BP 118 / 82; Pulse 92; Resp 16; Pulse Ox 95% on R/A; Pain 2/10; em MDM: 07:34 Patient medically screened. pm1 10:04 Data reviewed: vital signs. Data interpreted: Pulse oximetry: on room air is 96 %. pm1 Interpretation: normal. 10:04 ED course: Patient not able to provide a stool sample, but feels ready to go home. Will pm1 discharge the patient home with Bentyl and Zofran. Impression is viral gastroenteritis or food poisoning. 06/16 07:45 Order name: Basic Metabolic Panel; Complete Time: 09:07 pm1 06/16 07:45 Order name: CBC with Diff; Complete Time: 09:18 pm1 06/16 07:45 Order name: Creatinine for Radiology; Complete Time: 09:07 pm1 06/16 07:45 Order name: Hepatic Function; Complete Time: 09:07 pm1 06/16 07:45 Order name: Lipase; Complete Time: 09:07 pm1 06/16 09:07 Order name: Manual Differential; Complete Time: 09:18 EDMS 06/16 07:45 Order name: CT Abd/Pelvis - IV Contrast Only; Complete Time: 09:18 pm1 06/16 07:45 Order name: IV Saline Lock; Complete Time: 08:00 pm1 06/16 07:45 Order name: Labs collected and sent; Complete Time: 08:00 pm1 Administered Medications: 07:58 Drug: NS 0.9% 1000 ml Route: IV; Rate: 1000 ml; Site: left antecubital; iw 10:33 Follow up: IV Status: Order to discontinue infusion; IV Intake: 800ml em 07:59 Drug: Zofran 4 mg Route: IVP; Site: left antecubital; iw 08:21 Follow up: Response: No adverse reaction; Nausea is decreased em 08:02 Drug: morphine 4 mg Route: IVP; Site: left antecubital; iw 08:22 Follow up: Response: No adverse reaction; Marked relief of symptoms; Pain is decreased em 10:28 Drug: Bentyl 20 mg Route: PO; em 10:33 Follow up: Response: Medication administered at discharge. em Disposition: 06/17 08:30 Co-signature as Attending Physician, Catalino Angulo MD I agree with the assessment and kdr plan of care. Disposition: 06/16/19 10:09 Discharged to Home. Impression: Vomiting, Diarrhea, unspecified, Unspecified abdominal pain. - Condition is Stable. - Discharge Instructions: Abdominal Pain, Adult, Diarrhea, Adult, Food Poisoning, Nausea and Vomiting, Adult, Viral Gastroenteritis, Adult. - Prescriptions for Bentyl 20 mg Oral Tablet - take 1 tablet by ORAL route every 6 hours As needed; 20 tablet. Zofran 4 mg Oral Tablet - take 1 tablet by ORAL route every 8 hours As needed; 20 tablet. - Work release form, Medication Reconciliation Form, Thank You Letter, Antibiotic Education, Prescription Opioid Use form. - Follow up: Emergency Department; When: As needed; Reason: Worsening of condition. Follow up: Private Physician; When: 2 - 3 days; Reason: Recheck today's complaints, Continuance of care, Re-evaluation by your physician. - Problem is new. - Symptoms have improved. Signatures: Dispatcher [employer] EDCO Catalino Angulo MD MD [facility] Stanley Carpio, BEAD WIRE TAPER BEAD WIRE TAPER em Lanette Verma, AJ RN Nathan Marino NP MATCH MARKER pm1 Corrections: (The following items were deleted from the chart) 06/16 10:36 10:09 06/16/2019 10:09 Discharged to Home. Impression: Vomiting; Diarrhea, unspecified; em Unspecified abdominal pain. Condition is Stable. Forms are Medication Reconciliation Form, Thank You Letter, Antibiotic Education, Prescription Opioid Use. Follow up: Emergency Department; When: As needed; Reason: Worsening of condition. Follow up: Private Physician; When: 2 - 3 days; Reason: Recheck today's complaints, Continuance of care, Re-evaluation by your physician. Problem is new. Symptoms have improved. pm1
[2019-06-16] MEDS ORDERED: DICYCLOMINE HCL 10 MG CAP ONE (10:16)
[2019-06-16 12:04] VITALS: TEMP 98.9
[2019-06-16 12:07] VITALS: BP 118/82; O2SAT 95
== END 2019-06-16 10:36 | disposition home or self-care (01) ==
LOC: ER 07:22
DX: R19.7 Diarrhea, unspecified (principal); I10 Essential (primary) hypertension; J45.909 Unspecified asthma, uncomplicated; Z88.4 Allergy status to anesthetic agent; Z88.5 Allergy status to narcotic agent; Z91.048 Other nonmedicinal substance allergy status
CPT/HCPCS: 96361; 85025; 80048; 36415; 80076; 83690; 74177; 96375; 96374; 99284; Q9967; J7030; J2405

== ENCOUNTER 2019-11-15 19:14 | Emergency (ER) | payer BC ==
[2019-11-15] MEDS ORDERED: ACETAMINOPHEN 325 MG TABLET ONE (19:38)
[2019-11-15] MEDS ORDERED: IBUPROFEN 400 MG TAB ONE (19:38)
--- NOTE | 2019-11-15 20:37 | RAD REPORT ---
EXAM DESCRIPTION: RAD - Ankle Right 3 View - 11/15/2019 8:13 pm CLINICAL HISTORY: Right ankle pain FINDINGS: No fracture or dislocation is seen. Soft tissue swelling. Small osteophytes involve the ankle. Spur extends off the posterior calcaneus
--- NOTE | 2019-11-15 20:53 | EDPHYS ---
Physician Documentation [facility] Name: Rene Killian Jr Age: 39 yrs Sex: Male : 1980 Arrival Date: 11/15/2019 Time: 19:18 Bed 14 Private MD: ED Physician Indra Plasencia HPI: 11/14 19:26 This 39 yrs old Male presents to ER via Unassigned with complaints of ankle cp pain. 19:26 The patient presents with pain, that is acute, swelling, tenderness. The complaints cp affect the right ankle. Context: resulted from an unknown cause, the patient can partially bear weight, the patient is able to ambulate, with moderate difficulty, Problem is a result from a previous injury: No. Onset: The symptoms/episode began/occurred this morning. Associated signs and symptoms: Pertinent negatives calf tenderness, numbness, weakness. Treatment prior to arrival includes: no previous treatment. Historical: - Allergies: 19:28 PROPOFOL; dm5 19:28 Tape; dm5 19:28 Latex, Natural Rubber; dm5 19:28 Hydrocodone-Acetaminophen; dm5 - PMHx: 19:28 Asthma; Bronchitis; Cellulitis; Hypertension; Pneumonia; dm5 ROS: 19:30 Constitutional: Negative for body aches, chills, fever, poor PO intake. cp 19:30 Cardiovascular: Negative for chest pain. cp 19:30 Respiratory: Negative for cough, shortness of breath. 19:30 Back: Negative for pain at rest, pain with movement. 19:30 MS/extremity: Positive for pain, swelling, tenderness, of the right lateral malleolus and lateral side of right heel, Negative for injury or acute deformity, decreased range of motion, paresthesias. 19:30 All other systems are negative. Exam: 19:40 Constitutional: The patient appears in no acute distress, alert, awake, well developed, cp well nourished, obese. 19:40 Head/Face: Normocephalic, atraumatic. cp 19:40 Cardiovascular: Rate: normal. 19:40 Respiratory: the patient does not display signs of respiratory distress, Respirations: normal. 19:40 Musculoskeletal/extremity: Extremities: grossly normal except: noted in the right lateral malleolus and lateral side of right heel: pain, swelling, tenderness, There is no evidence of decreased ROM, deformity, ROM: limited passive range of motion due to pain, in the right ankle, Perfusion: the extremity is normally perfused throughout, Sensation intact. 19:40 Skin: cellulitis, is not appreciated, no rash present. Vital Signs: 20:00 BP 137 / 79; Pulse 80; Resp 16; Pulse Ox 100% on R/A; jb4 Procedures: 21:25 Splinting: Splint applied to right ankle using Air Cast, applied by nurse. Examined by cp me, post splint application: neurovascular intact, Patient tolerated well. Crutch training provided to patient and/or family. Return demonstration given. MDM: 19:23 Patient medically screened. cp 19:30 Differential diagnosis: closed fracture, tendonitis, sprain, gout, cellulitis. cp 20:50 Data reviewed: vital signs, nurses notes, radiologic studies, plain films. cp 20:50 Counseling: I had a detailed discussion with the patient and/or guardian regarding: the cp historical points, exam findings, and any diagnostic results supporting the discharge/admit diagnosis, radiology results, to return to the emergency department if symptoms worsen or persist or if there are any questions or concerns that arise at home. Response to treatment: the patient's symptoms have mildly improved after treatment, and as a result, I will discharge patient. 11/14 19:26 Order name: XRAY Ankle RIGHT 3 view; Complete Time: 20:44 11/14 20:44 Interpretation: Report reviewed. 11/14 20:44 Order name: Crutches; Complete Time: 21:29 11/14 20:44 Order name: Aircast Ankle Splint; Complete Time: 21:29 cp Administered Medications: 19:32 Drug: Ibuprofen 800 mg Route: PO; jb4 20:30 Follow up: Response: No adverse reaction; Pain is decreased jb4 19:32 Drug: Tylenol 650 mg Route: PO; jb4 20:30 Follow up: Response: No adverse reaction; Pain is decreased jb4 Disposition: 21:00 Chart complete. 11/15 03:39 Co-signature as Attending Physician, Indra Plasencia MD. pkl Disposition: 11/15/19 20:52 Discharged to Home. Impression: Pain in right ankle and joints of right foot. - Condition is Stable. - Discharge Instructions: Elastic Bandage and RICE, Ankle Pain. - Prescriptions for Diclofenac Sodium 75 mg Oral Tablet, Delayed Release (E.C.) - take 1 tablet by ORAL route 2 times per day; 20 tablet. - Medication Reconciliation Form, Thank You Letter, Antibiotic Education, Prescription Opioid Use form. - Follow up: Private Physician; When: 5 - 6 days; Reason: Recheck today's complaints. - Problem is new. - Symptoms have improved. Signatures: Dispatcher [employer] Saranya Ward RN RN dm5 Indra Plasencia MD MD pkl Remi Varela PA PA Ronald Rutherford, AJ RN jb4 Corrections: (The following items were deleted from the chart) 11/14 21:29 20:52 11/15/2019 20:52 Discharged to Home. Impression: Pain in right ankle and joints jb4 of right foot. Condition is Stable. Forms are Medication Reconciliation Form, Thank You Letter, Antibiotic Education, Prescription Opioid Use. Follow up: Private Physician; When: 5 - 6 days; Reason: Recheck today's complaints. Problem is new. Symptoms have improved. cp
--- NOTE | 2019-11-15 20:53 | ER ---
Nurse's Notes [facility] Name: Rene Killian Jr Age: 39 yrs Sex: Male : 1980 Arrival Date: 11/15/2019 Time: 19:18 Bed 14 Private MD: Diagnosis: Pain in right ankle and joints of right foot Presentation: 11/14 19:26 Chief complaint: Patient states: woke up this morning with radiating pain in right dm5 ankle. Pain has centralized to between the ankle and heel. Pain rated at 6/10. Pt denies injury. Right ankle appears to be swollen and red. Tender to touch. Coronavirus screen: Proceed with normal triage. Ebola Screen: Patient negative for fever greater than or equal to 101.5 degrees Fahrenheit, and additional compatible Ebola Virus Disease symptoms Patient denies exposure to infectious person. Patient denies travel to an Ebola-affected area in the 21 days before illness onset. No symptoms or risks identified at this time. Initial Sepsis Screen: Does the patient meet any 2 criteria? No. Patient's initial sepsis screen is negative. Does the patient have a suspected source of infection? No. Patient's initial sepsis screen is negative. Risk Assessment: Do you want to hurt yourself or someone else? Patient reports no desire to harm self or others. Onset of symptoms was November 15, 2019. 19:26 Method Of Arrival: Wheelchair dm5 19:26 Acuity: ERLINDA 4 dm5 Triage Assessment: 19:28 General: Appears in no apparent distress. Behavior is calm, cooperative. Pain: dm5 Complains of pain in lateral side of right heel and right lateral malleolus Pain currently is 6 out of 10 on a pain scale. Aggravated by weight bearing. Neuro: Level of Consciousness is awake, alert, obeys commands, Oriented to person, place, time, situation. Cardiovascular: No deficits noted. Respiratory: Airway is patent. Musculoskeletal: Swelling present in right ankle. Injury Description: denies injury. Historical: - Allergies: 19:28 PROPOFOL; dm5 19:28 Tape; dm5 19:28 Latex, Natural Rubber; dm5 19:28 Hydrocodone-Acetaminophen; dm5 - PMHx: 19:28 Asthma; Bronchitis; Cellulitis; Hypertension; Pneumonia; dm5 Screenin:30 Abuse screen: Denies threats or abuse. Nutritional screening: No deficits noted. jb4 Tuberculosis screening: No symptoms or risk factors identified. Fall Risk None identified. Assessment: 19:30 General: Appears in no apparent distress. uncomfortable, Behavior is calm, cooperative, jb4 appropriate for age. Pain: Pain does not radiate. Pain currently is 6 out of 10 on a pain scale. Quality of pain is described as pressure, throbbing. Neuro: Level of Consciousness is awake, alert, obeys commands, Oriented to person, place, time, situation. Cardiovascular: Patient's skin is warm and dry. Respiratory: Airway is patent Respiratory effort is even, unlabored, Respiratory pattern is regular, symmetrical. GI: No signs and/or symptoms were reported involving the gastrointestinal system. : No signs and/or symptoms were reported regarding the genitourinary system. EENT: No signs and/or symptoms were reported regarding the EENT system. Derm: Skin is intact, Skin is pink, warm \T\ dry. Musculoskeletal: Circulation, motion, and sensation intact. Range of motion: intact in all extremities, Swelling present in right foot No obvious injury seen or reported. 20:30 Reassessment: Patient appears in no apparent distress at this time. Patient and/or jb4 family updated on plan of care and expected duration. Pain level reassessed. Patient is alert, oriented x 3, equal unlabored respirations, skin warm/dry/pink. Patient states feeling better. 21:30 Reassessment: Patient appears in no apparent distress at this time. Patient and/or jb4 family updated on plan of care and expected duration. Pain level reassessed. Patient is alert, oriented x 3, equal unlabored respirations, skin warm/dry/pink. Pt verbalized understanding of d/c and follow up instructions, crutch walking, and splint care. Assisted to vehicle via wheelchair. Patient states feeling better. Vital Signs: 20:00 BP 137 / 79; Pulse 80; Resp 16; Pulse Ox 100% on R/A; jb4 ED Course: 19:18 Patient arrived in ED. bp1 19:19 Remi Varela PA is PHCP. cp 19:19 Indra Plasencia MD is Attending Physician. cp 19:28 Triage completed. dm5 19:30 Arm band placed on right wrist. Patient placed in an exam room. dm5 19:30 Patient has correct armband on for positive identification. Bed in low position. Call jb4 light in reach. Side rails up X 1. Pulse ox on. NIBP on. 19:55 Ronald Champagne, RN is Primary Nurse. jb4 20:14 XRAY Ankle RIGHT 3 view In Process Unspecified. EDMS 21:30 No provider procedures requiring assistance completed. Patient did not have IV access jb4 during this emergency room visit. Crutch training done. Air stirrup applied to right ankle. Administered Medications: 19:32 Drug: Ibuprofen 800 mg Route: PO; jb4 20:30 Follow up: Response: No adverse reaction; Pain is decreased jb4 19:32 Drug: Tylenol 650 mg Route: PO; jb4 20:30 Follow up: Response: No adverse reaction; Pain is decreased jb4 Outcome: 20:52 Discharge ordered by . cp 21:29 Patient left the ED. jb4 21:30 Discharged to home via wheelchair, with crutches, with family. jb4 21:30 Condition: stable 21:30 Discharge instructions given to patient, Instructed on discharge instructions, follow up and referral plans. medication usage, Demonstrated understanding of instructions, follow-up care, medications, Prescriptions given X 1. Signatures: Dispatcher [employer] Saranya Ward, RN RN dm5 Remi Varela PA PA cp Bryson, James, RN RN jb4 Arabella Arroyo [facility]
[2019-11-15 21:52] VITALS: BP 137/79; O2SAT 100
== END 2019-11-15 21:29 | disposition home or self-care (01) ==
LOC: ER 19:14
DX: M25.571 Pain in right ankle and joints of right foot (principal); I10 Essential (primary) hypertension; Z88.5 Allergy status to narcotic agent; Z88.6 Allergy status to analgesic agent; Z91.040 Latex allergy status; Z91.048 Other nonmedicinal substance allergy status
CPT/HCPCS: 99284

== ENCOUNTER 2021-02-19 10:10 | Emergency (ER) | payer OTHER, BC ==
--- OUTSIDE RECORDS SUMMARY | 2021-02-19 10:13 | XMS REPORT | Continuity of Care Document ---
:1980 Author Organization [facility] t Address [address] [place] [address] [address] [place] [address] Care Team Providers Name Role Phone Lab, Fam Pob I Attending Clinician Unavailable Problems This patient has no known problems. Allergies, Adverse Reactions, Alerts This patient has no known allergies or adverse reactions. Medications This patient has no known medications. Procedures This patient has no known procedures. Encounters Start End Encounter Admission Attending Care Care Encounter Source Date/Time Date/Time Type Type Clinicians Facility Department ID 2020-09-09 2020-09-09 Laboratory Lab, [facility] [id number] 17:44:58 18:04:58 Only Fam Pob I Health [id number] [place] [id number] Professio [phone] nal [address] 2020-07-06 2020-07-06 Laboratory Lab, [facility] [id number] 13:42:45 14:02:45 Only Fam Pob I Health [id number] [place] [id number] Professio [phone] nal [phone] 2020-02-03 2020-02-03 Laboratory Lab, [facility] [id number] 10:38:19 10:58:19 Only Fam Pob I Health [id number] [place] [id number] Professio [phone] nal [phone] Results This patient has no known results.
[2021-02-19] MEDS ORDERED: IBUPROFEN 400 MG TAB ONE (11:23)
[2021-02-19] MEDS ORDERED: CODEINE 30MG/APAP 300MG TAB ONE (11:23)
[2021-02-19] MEDS ORDERED: methocarbamoL 500 MG TAB ONE (11:24)
--- NOTE | 2021-02-19 11:28 | RAD REPORT ---
EXAM DESCRIPTION: CT - Spine Lumbar Wo Con - 02/19/2021 11:07 am CLINICAL HISTORY: Radiculopathy. LOWER BACK PAIN COMPARISON: No comparisons TECHNIQUE: Axial noncontrast CT imaging of the lumbar spine was performed with coronal and sagittal re-formatted images. All CT scans are performed using dose optimization technique as appropriate and may include automated exposure control or mA/KV adjustment according to patient size. FINDINGS: No acute lumbar spine fracture seen. No aggressive marrow pattern or malalignment. Paraspinal tissues are normal in thickness. No paraspinal abscess or hematoma seen. Posterior disc bulges are present involving the lower levels of the lumbar spine. Full assessment is limited on CT, however no high-grade canal stenosis is evident. IMPRESSION: No acute lumbar spine abnormality is seen. Mild to moderate lower lumbar degenerative spondylosis.
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
== END 2021-02-19 12:25 | disposition home or self-care (01) ==
LOC: ER 10:10
DX: M54.5 Low back pain (principal); I10 Essential (primary) hypertension; V59.40XA Driver of pick-up truck or van injured in collision with unspecified motor vehicles in traffic accident, initial encounter; Z88.4 Allergy status to anesthetic agent; Z88.5 Allergy status to narcotic agent; Z91.040 Latex allergy status; Z91.048 Other nonmedicinal substance allergy status
CPT/HCPCS: 72131; 99283

== ENCOUNTER 2021-09-27 06:40 | Emergency (ER) | payer BC ==
--- OUTSIDE RECORDS SUMMARY | 2021-09-27 06:43 | XMS REPORT | Continuity of Care Document ---
:1980 Author Organization [facility] t Address [address] [place] [address] Care Team Providers Name Role Phone Lab, Fam Pob I Attending Clinician Unavailable Romi MUSEUM EXHIBIT TECHNICIAN Attending Clinician ROMI Attending Clinician Unavailable Koko MUSEUM EXHIBIT TECHNICIAN Attending Clinician KOKO Attending Clinician Unavailable Payers Payer Name Policy Type Policy Number Effective Date Expiration Date S ource Problems This patient has no known problems. Allergies, Adverse Reactions, Alerts Allergy Allergy Status Severity Reaction(s) Onset Inactive Treating Comm ents Source Name Type Date Date Clinician NO KNOWN Drug Active Univers ALLERGIE Class ity of [facility] Social History Social Habit Start Date Stop Date Quantity Comments Source [facility] Exposure to SARS-CoV-2 Not sure [facility] [place] [facility] Smoking Status Start Date Stop Date Source Unknown if ever smoked Universit y [facility] Medications This patient has no known medications. Procedures This patient has no known procedures. Encounters Start End Encounter Admission Attending Care Care Encounter Source Date/Time Date/Time Type Type Clinicians Facility Department ID 2020-09-09 2020-09-09 Laboratory Lab, [facility] [place] 1..840.114 [id number] 17:44:58 18:04:58 Only Fam Pob I Health [id number] [place] [id number] [place] [phone] [address] 2020-09-09 2020-09-09 Laboratory Lab, Adc Fam Pob I [facility] 1.. [id number] [id number] Univers 17:44:58 18:04:58 Only Edgar [facility] [id number] ity of [place] [id number] Margarito as Professio [phone] [address] Office [address] 2020-09-09 2020-09-09 Outpatient R [facility] [id number] Univers 17:40:00 17:40:00 [id number] ity [facility] 2020-09-09 2020-09-09 Outpatient R ROMI [facility] [id number] Univers 17:40:00 17:40:00 EDGAR y [facility] 2020-07-06 2020-07-06 Laboratory Lab, [facility] Pob I [facility] 1.. 840.114 [id number] Univers 13:42:45 14:02:45 Only Gabriela [facility] [id number] ity of [place] [id number] Margarito as Professio [phone] [address] Office Building [facility] 2020-07-06 2020-07-06 Laboratory Lab, [facility] 1..840.114 [id number] 13:42:45 14:02:45 Only Fam Pob I Health [id number] [place] [id number] Professio [phone] [place] [address] [address] 2020-07-06 2020-07-06 Outpatient [facility] [id number] Univers 13:40:00 13:40:00 [id number] ity [facility] 2020-07-06 2020-07-06 [facility] [id number] Univers 13:40:00 13:40:00 GABRIELA ity [facility] 2020-02-03 2020-02-03 Laboratory Lab, [facility] Pob I [facility] 1.2. 840.114 [id number] Univers 10:38:19 10:58:19 Only Gabriela [facility] [id number] ity of [place] [id number] Margarito as Professio [phone] [place] dic[place] nal [address] [place] [address] Office [address] 2020-02-03 2020-02-03 Laboratory Lab, [facility] 1..840.114 [id number] 10:38:19 10:58:19 Only Fam Po I [facility] [id number] [place] [id number] [facility] [phone] [address] [address] 2020-02-03 2020-02-03 Outpatient R [facility] [id number] Univers 10:40:00 10:40:[id number] [facility] 2020-02-03 2020-02-03 [facility] [id number] Univers 10:40:00 10:40:[address] [facility] Results This patient has no known results.
[2021-09-27] MEDS ORDERED: ONDANSETRON 4 MG/2 ML VIAL ONE (07:19)
[2021-09-27] MEDS ORDERED: FAMOTIDINE 20 MG/2 ML VIAL IV ONE (07:19)
[2021-09-27] MEDS ORDERED: MORPHINE 4 MG/ML SYR ONE (07:19)
[2021-09-27] MEDS ORDERED: NA CHLORIDE 0.9% 1,000 ML ONE ×2 (07:19→08:24)
[2021-09-27 07:26] LABS: Absolute Lymphocytes (CBC) 2.4 K/uL (0.7-4.9); Hematocrit 46.3 % (39.6-49.0); MPV 7.9 fL (7.6-11.3)
[2021-09-27 07:47] LABS: Albumin 3.7 g/dL (3.4-5.0); Bilirubin Total 0.3 mg/dL (0.2-1.0); Potassium 4.1 mmol/L (3.5-5.1); Protein, Total 7.6 g/dL (6.4-8.2)
--- NOTE | 2021-09-27 08:14 | RAD REPORT ---
EXAM DESCRIPTION: CT - Stone Protocol - 09/27/2021 7:58 am CLINICAL HISTORY: Abdominal pain. Right flank pain COMPARISON: 2019 TECHNIQUE: Computed axial tomography of the abdomen pelvis was obtained without oral or IV contrast. Lack of IV and oral contrast limits evaluation of solid organs, bowel, and vessels. Coronal reformat betty images were obtained and reviewed. All CT scans are performed using dose optimization technique as appropriate and may include automated exposure control or mA/KV adjustment according to patient size. FINDINGS: Tiny bilateral renal calculi. Mild right hydronephrosis. 2 millimeter calculus right UVJ. No left hydronephrosis. Left pleural calcification. The liver, spleen, pancreas and adrenals appear grossly normal There is no evidence of diverticulitis. Small to moderate left and small right inguinal hernias contain fat IMPRESSION: 2 millimeter calculus right UVJ with mild right hydronephrosis
[2021-09-27] MEDS ORDERED: KETOROLAC 30 MG/ML INJ ONE (08:24)
[2021-09-27] MEDS ORDERED: TAMSULOSIN 0.4 MG SR CAP ONE (08:24)
[2021-09-27 08:36] LABS: Urine Blood 2+ (Negative); Urine Glucose Negative (Negative); Urine Protein Negative (Negative); Urine Specific Gravity >=1.030 (1.005-1.030); Urine pH 5.5 (5.0-7.0)
--- NOTE | 2021-09-27 09:36 | EDPHYS ---
Physician Documentation [facility] Name: Rene Killian Jr Age: 41 yrs Sex: Male : 1980 Arrival Date: 09/27/2021 Time: 06:44 Bed 20 Private MD: Latasha Bajwa K ED Physician Jesus Tavares HPI: 09/27 07:00 This 41 yrs old Male presents to ER via Ambulatory with complaints of Flank Pain. jmm 07:00 The patient complains of pain in the right flank. Onset: The symptoms/episode jmm began/occurred acutely, yesterday. Modifying factors: The symptoms are alleviated by nothing. the symptoms are aggravated by nothing. Associated signs and symptoms: Pertinent positives: nausea, Pertinent negatives: diarrhea, vomiting. The patient has not experienced similar symptoms in the past. Historical: - Allergies: 07:13 Hydrocodone-Acetaminophen; mild itch; aa5 07:13 Latex, Natural Rubber; aa5 07:13 PROPOFOL; aa5 07:13 Tape; aa5 - PMHx: 07:13 Asthma; Bronchitis; Cellulitis; Hypertension; Pneumonia; Hypercholesterolemia; aa5 - Immunization history:: Flu vaccine status is unknown. - Social history:: Smoking status: Patient reports use of chewing tobacco. ROS: 07:00 Constitutional: Negative for fever, chills, and weight loss, Cardiovascular: Negative jmm for chest pain, palpitations, and edema, Respiratory: Negative for shortness of breath, cough, wheezing, and pleuritic chest pain. 07:00 Abdomen/GI: Positive for abdominal pain. 07:00 Back: Positive for flank pain, on the right. 07:00 All other systems are negative. Exam: 07:00 Constitutional: This is a well developed, well nourished patient who is awake, alert, jmm and in no acute distress. Head/Face: atraumatic. Eyes: EOMI, no conjunctival erythema appreciated ENT: Moist Mucus Membranes Neck: Trachea midline, Supple Chest/axilla: Normal chest wall appearance and motion. Cardiovascular: Regular rate and rhythm. No edema appreciated Respiratory: Normal respirations, no respiratory distress appreciated 07:00 Back: Normal ROM Skin: General appearance color normal MS/ Extremity: Moves all extremities, no obvious deformities appreciated, no edema noted to the lower extremities Neuro: Awake and alert Psych: Behavior is normal, Mood is normal, Patient is cooperative and pleasant 07:00 Abdomen/GI: Inspection: abdomen appears normal, Bowel sounds: normal, Palpation: soft, mild abdominal tenderness, in the anterior aspect of right lateral abdomen, posterior aspect of right lateral abdomen and right lower quadrant. Vital Signs: 07:05 BP 150 / 96; Pulse 82; Resp 18 S; Temp 98.9(O); Pulse Ox 97% on R/A; Weight 158.76 kg aa5 (R); Height 5 ft. 9 in. (175.26 cm) (R); 08:12 BP 132 / 73; Pulse 70; Pulse Ox 96% on R/A; ap3 09:01 BP 127 / 64; Pulse 71; Pulse Ox 97% on R/A; ap3 07:05 Body Mass Index 51.69 (158.76 kg, 175.26 cm) aa5 MDM: 07:01 Patient medically screened. [facility] 09:32 Data reviewed: vital signs, nurses notes. Counseling: I had a detailed discussion with dre the patient and/or guardian regarding: the historical points, exam findings, and any diagnostic results supporting the discharge/admit diagnosis, lab results, radiology results, the need for outpatient follow up, to return to the emergency department if symptoms worsen or persist or if there are any questions or concerns that arise at home. ED course: Patient is alert and nontoxic in appearance in the ED. Pain is relieved in the ED. Patient given strict return precautions and otherwise advised follow-up with urology if symptoms do not resolve.. 09/27 07:04 Order name: CBC with Diff [facility] 09/27 07:04 Order name: CMP [facility] 09/27 07:04 Order name: Lipase [facility] 09/27 07:05 Order name: CBC with Automated Diff; Complete Time: 07:38 [facility] 09/27 07:05 Order name: Comprehensive Metabolic Panel; Complete Time: 08:03 [facility] 09/27 07:05 Order name: Lipase; Complete Time: 08:03 [facility] 09/27 07:39 Order name: CT Stone Protocol; Complete Time: 08:16 [facility] 09/27 08:36 Order name: Urine Dipstick-Ancillary; Complete Time: 08:44 [facility] 09/27 07:04 Order name: IV Saline Lock; Complete Time: 07:12 [facility] 09/27 07:04 Order name: Labs collected and sent; Complete Time: 07:12 [facility] 09/27 07:04 Order name: IV Saline Lock; Complete Time: 07:12 [facility] 09/27 07:04 Order name: Labs collected and sent; Complete Time: 07:12 [facility] 09/27 07:04 Order name: Urine Dipstick-Ancillary (obtain specimen); Complete Time: 08:32 [facility] Administered Medications: 07:13 CANCELLED (Duplicate Order): NS 0.9% 1000 ml IV at 1 bolus Per protocol; 1000 mL bolus ap3 07:13 CANCELLED (Duplicate Order): Pepcid (famotidine) 20 mg IVP once; dilute with 10 mL 0.9% ap3 NaCl; give over 2 minutes 07:13 CANCELLED (Duplicate Order): Zofran (Ondansetron) 4 mg IVP once; over 2 minutes ap3 07:24 Drug: NS 0.9% 1000 ml Route: IV; Rate: 1 bolus; Site: right antecubital; ap3 09:57 Follow up: IV Status: Completed infusion; IV Intake: 1000ml ap3 07:24 Drug: Pepcid (famotidine) 20 mg Route: IVP; Site: right antecubital; ap3 08:17 Follow up: Response: No adverse reaction ap3 07:24 Drug: Zofran (Ondansetron) 4 mg Route: IVP; Site: right antecubital; ap3 08:17 Follow up: Response: No adverse reaction ap3 07:24 Drug: morphine 4 mg Route: IVP; Site: right antecubital; ap3 08:17 Follow up: Response: No adverse reaction; Pain is unchanged, physician notified ap3 08:31 Drug: Ketorolac 30 mg Route: IVP; Site: right antecubital; aa5 09:57 Follow up: Response: No adverse reaction ap3 08:31 Drug: NS 0.9% 1000 ml Route: IV; Rate: 1 bolus; Site: right antecubital; aa5 09:57 Follow up: IV Status: Completed infusion; IV Intake: 1000ml ap3 08:31 Drug: Flomax (tamsulosin) 0.4 mg Route: PO; aa5 09:56 Follow up: Response: No adverse reaction ap3 Disposition Summary: 09/27/21 09:36 Discharge Ordered Location: Home [facility] Condition: Stable [facility] Diagnosis - Calculus of ureter [facility] Followup: [facility] - With: Sebastian Nunez MD - When: 2 - 3 days - Reason: Recheck today's complaints, Continuance of care, Re-evaluation by your physician Discharge Instructions: - Discharge Summary Sheet [facility] - Kidney Stones [facility] - Dietary Guidelines to Help Prevent Kidney Stones [facility] Forms: - Medication Reconciliation Form [facility] - Thank You Letter [facility] - Antibiotic Education [facility] - Prescription Opioid Use [facility] - Work release form ap3 - Family Work Release ap3 Prescriptions: - Ibuprofen 800 mg Oral Tablet - take 1 tablet by ORAL route every 8 hours As needed take with food; 30 tablet; [facility] Refills: 0, Product Selection Permitted - Flomax 0.4 mg Oral capsule - take 1 capsule by ORAL route once daily 1/2 hour following the same meal each [facility] day; 10 capsule; Refills: 0, Product Selection Permitted - ondansetron 4 mg Oral tablet,disintegrating - take 1 tablet by ORAL route every 4-6 hours; 20 tablet; Refills: 0, Product [facility] Selection Permitted - orphenadrine citrate 100 mg Oral Tablet Sustained Release - take 1 tablet by ORAL route 2 times per day As needed; 20 tablet; Refills: 0, [facility] Product Selection Permitted Signatures: Dispatcher [employer] [facility] Layo Pereira PA PA [facility] Pratima Robledo, RN RN aa5 Jamila Bruno RN RN ap3 Corrections: (The following items were deleted from the chart) 07:06 07:05 CBC+H.LAB.BRZ ordered. [facility] EDMS 07:06 07:05 COMPREHENSIVE METABOLIC PANEL+C.LAB.BRZ ordered. [facility] EDMS 07:06 07:05 LIPASE+C.LAB.BRZ ordered. [facility] EDMS 07:13 07:04 NS 0.9% 1000 ml IV at 1 bolus Per protocol; 1000 mL bolus ordered. [facility] ap3 07:13 07:04 Pepcid (famotidine) 20 mg IVP once; dilute with 10 mL 0.9% NaCl; give over 2 ap3 minutes ordered. [facility] 07: 07:04 Zofran (Ondansetron) 4 mg IVP once; over 2 minutes ordered. [facility] ap3
--- NOTE | 2021-09-27 09:36 | ER ---
Nurse's Notes [facility] Name: Rene Killian Jr Age: 41 yrs Sex: Male : 1980 Arrival Date: 09/27/2021 Time: 06:44 Bed 20 Private MD: Latasha Bajwa K Diagnosis: Calculus of ureter Presentation: 09/27 07:05 Coronavirus screen: At this time, the client does not indicate any symptoms associated aa5 with coronavirus-19. Ebola Screen: No symptoms or risks identified at this time. Initial Sepsis Screen: Does the patient meet any 2 criteria? No. Patient's initial sepsis screen is negative. Does the patient have a suspected source of infection? No. Patient's initial sepsis screen is negative. Risk Assessment: Do you want to hurt yourself or someone else? Patient reports no desire to harm self or others. Onset of symptoms was September 26, 2021. 07:05 Acuity: ERLINDA 3 aa5 07:05 Chief complaint: Patient states: right flank pain radiating to right groin aa5 intermittently. Denies nausea/vomiting. 07:05 Method Of Arrival: Ambulatory aa5 Historical: - Allergies: 07:13 Hydrocodone-Acetaminophen; mild itch; aa5 07:13 Latex, Natural Rubber; aa5 07:13 PROPOFOL; aa5 07:13 Tape; aa5 - PMHx: 07:13 Asthma; Bronchitis; Cellulitis; Hypertension; Pneumonia; Hypercholesterolemia; aa5 - Immunization history:: Flu vaccine status is unknown. - Social history:: Smoking status: Patient reports use of chewing tobacco. Screenin:26 Abuse screen: Denies threats or abuse. Nutritional screening: No deficits noted. ap3 Tuberculosis screening: No symptoms or risk factors identified. Fall Risk No fall in past 12 months (0 pts). No secondary diagnosis (0 pts). IV access (20 points). Ambulatory Aid- None/Bed Rest/Nurse Assist (0 pts). Gait- Normal/Bed Rest/Wheelchair (0 pts) Mental Status- Oriented to own ability (0 pts). Total Jimenez Fall Scale indicates No Risk (0-24 pts). Assessment: 07:25 General: Appears in no apparent distress. comfortable, Behavior is calm, cooperative, ap3 appropriate for age. Pain: Complains of pain in right low back. Neuro: Level of Consciousness is awake, alert, obeys commands, Oriented to person, place, time, situation, Gait is steady, Speech is normal. Cardiovascular: Patient's skin is warm and dry. Respiratory: Airway is patent Respiratory effort is even, unlabored, Respiratory pattern is regular, symmetrical. : Reports pain flank(s). 08:13 Reassessment: Patient and/or family updated on plan of care and expected duration. Pain ap3 level reassessed. Patient is alert, oriented x 3, equal unlabored respirations, skin warm/dry/pink. patient reports pain comes and goes at this time. 09:02 Reassessment: Patient and/or family updated on plan of care and expected duration. Pain ap3 level reassessed. Patient is alert, oriented x 3, equal unlabored respirations, skin warm/dry/pink. patient and guest provided with warm blanket. Vital Signs: 07:05 BP 150 / 96; Pulse 82; Resp 18 S; Temp 98.9(O); Pulse Ox 97% on R/A; Weight 158.76 kg aa5 (R); Height 5 ft. 9 in. (175.26 cm) (R); 08:12 BP 132 / 73; Pulse 70; Pulse Ox 96% on R/A; ap3 09:01 BP 127 / 64; Pulse 71; Pulse Ox 97% on R/A; ap3 07:05 Body Mass Index 51.69 (158.76 kg, 175.26 cm) aa5 ED Course: 06:44 Patient arrived in ED. es 06:44 Latasha Bajwa MD is Private Physician. es 06:44 [facility]reira [facility] 06:44 Jesus Tavares DO is Attending Physician. [facility] 06:57 Jamila Bruno, AJ is Primary Nurse. ap3 07:05 Arm band placed on Patient placed in an exam room, on a stretcher. aa5 07:09 Inserted saline lock: 20 gauge in right antecubital area, using aseptic technique. ap3 Blood collected. 07:12 Triage completed. aa5 07:26 Patient has correct armband on for positive identification. Bed in low position. Call ap3 light in reach. Side rails up X 1. Adult w/ patient. Pulse ox on. NIBP on. Door closed. Noise minimized. 07:58 CT Stone Protocol In Process Unspecified. EDMS 08:35 Nurse Practitioner and/or Physician Mobile Application Engineer to see patient. ap3 09:35 Sebastian Nunez MD is Referral Physician. jmm 09:56 No provider procedures requiring assistance completed. IV discontinued, intact, ap3 bleeding controlled, No redness/swelling at site. Pressure dressing applied. Administered Medications: 07:13 CANCELLED (Duplicate Order): NS 0.9% 1000 ml IV at 1 bolus Per protocol; 1000 mL bolus ap3 07:13 CANCELLED (Duplicate Order): Pepcid (famotidine) 20 mg IVP once; dilute with 10 mL 0.9% ap3 NaCl; give over 2 minutes 07:13 CANCELLED (Duplicate Order): Zofran (Ondansetron) 4 mg IVP once; over 2 minutes ap3 07:24 Drug: NS 0.9% 1000 ml Route: IV; Rate: 1 bolus; Site: right antecubital; ap3 09:57 Follow up: IV Status: Completed infusion; IV Intake: 1000ml ap3 07:24 Drug: Pepcid (famotidine) 20 mg Route: IVP; Site: right antecubital; ap3 08:17 Follow up: Response: No adverse reaction ap3 07:24 Drug: Zofran (Ondansetron) 4 mg Route: IVP; Site: right antecubital; ap3 08:17 Follow up: Response: No adverse reaction ap3 07:24 Drug: morphine 4 mg Route: IVP; Site: right antecubital; ap3 08:17 Follow up: Response: No adverse reaction; Pain is unchanged, physician notified ap3 08:31 Drug: Ketorolac 30 mg Route: IVP; Site: right antecubital; aa5 09:57 Follow up: Response: No adverse reaction ap3 08:31 Drug: NS 0.9% 1000 ml Route: IV; Rate: 1 bolus; Site: right antecubital; aa5 09:57 Follow up: IV Status: Completed infusion; IV Intake: 1000ml ap3 08:31 Drug: Flomax (tamsulosin) 0.4 mg Route: PO; aa5 09:56 Follow up: Response: No adverse reaction ap3 Intake: 09:57 IV: 1000ml; Total: 1000ml. ap3 09:57 IV: 1000ml; Total: 2000ml. ap3 Outcome: 09:36 Discharge ordered by . dre 09:56 Discharged to home ambulatory, with family. ap3 09:56 Condition: good 09:56 Discharge instructions given to patient, Instructed on discharge instructions, follow up and referral plans. medication usage, Demonstrated understanding of instructions, follow-up care, medications, Prescriptions given X 4. 10:00 Patient left the ED. ap3 Signatures: Dispatcher [employer] Layo Donahue PA PA jmm Salyer, Edna es Calderon, Audri, RN RN aa5 Jamila Bruno RN RN ap3
[2021-09-27 10:24] VITALS: TEMP 98.9
[2021-09-27 10:27] VITALS: BP 127/64; O2SAT 97
== END 2021-09-27 10:00 | disposition home or self-care (01) ==
LOC: ER 06:40
DX: N20.1 Calculus of ureter (principal); R11.0 Nausea; F17.220 Nicotine dependence, chewing tobacco, uncomplicated; I10 Essential (primary) hypertension; Z88.4 Allergy status to anesthetic agent; Z88.5 Allergy status to narcotic agent; Z88.8 Allergy status to other drugs, medicaments and biological substances; Z91.040 Latex allergy status; Z91.048 Other nonmedicinal substance allergy status
CPT/HCPCS: 96361; 85025; 36415; 81003; 83690; 80053; 76377; 74176; 96375; 96374; 99284; J7030 ×2; J2405

== ENCOUNTER 2023-10-30 22:04 | Emergency (ER) | payer BC ==
--- OUTSIDE RECORDS SUMMARY | 2023-10-30 22:07 | XMS REPORT | Continuity of Care Document ---
Author Name Unknown Address [address] [facility] [address] [place] [address] [facility] Address [address] [facility] [address] [place] [address] Care Team Providers Care Merchandise Executive Name Role Phone Maykel Kinney Attending Clinician Unavailable Xochitl Arthur Attending Clinician Unavailable Lab, Adc Fam Pob I Attending Clinician Unavailab Edgar Almaraz Attending Clinician [phone] EDGAR LLANOS Attending Clinician Unavailable Gabriela Jones Attending Clinician [phone] GABRIELA SUTHERLAND Attending Clinician Unavailable Doctor Unassigned, [place] Attending Clinician U navailable Payers Payer Name Policy Type Policy Number Effective Date Expirati on Date Source Allergies, Adverse Reactions, Alerts Allergy Name Allergy Type Status Severity Reaction(s) Onset Date Inactive Date Treating Clinician Comments Source NO KNOWN ALLERGIE S Drug Class Active [facility] Social History Social Habit Start Date Stop Date Quantity Comments Source Sexual orientation U [facility] Exposure to SARS-CoV-2 (event) 2020-08-10 00:00:00 2020-09-09 17:54:00 Not sure [facility] Sex Assigned At 1980 00:00:00 1980 00:00:00 [facility] Smoking Status Start Date Stop Date Source Tobacco smoking consumption unknown [facility] Encounters Start Date/Time End Date/Time Encounter Type Admission Type Attending Clinicians Care Facility Care Department Encounter ID Source 2023-09-21 08:25:00 [facility] [id number] [facility] 2023-07-31 15:18:01 Outpatient Kinney[facility] [id number] [facility] 2023-07-28 14:31:00 Outpatient Kinney, Maykel [facility] [id number] [facility] 2023-05-01 14:46:00 Outpatient Kinney, Maykel [facility] [id number] [facility] 2023-01-27 13:39:01 Outpatient Xochitl Arthur [facility] [id number] [facility] 2020-09-09 17:44:58 2020-09-09 18:04:58 Laboratory Only Lab, Adc Fam Pob I [facility] [address]114 [id number] 2020-09-09 17:44:58 2020-09-09 18:04:58 Laboratory Only Lab, Adc Fam Pob I Edgar Llanos [facility] [address] .114 [id number] [facility] 2020-09-09 17:40:00 2020-09-09 17:40:00 Outpatient EDGAR [facility] [id number] [facility] 2020-07-06 13:42:45 2020-07-06 14:02:45 Laboratory Only Lab, Adc Fam Pob I [facility] [address] .114 [id number] 2020-07-06 13:42:45 2020-07-06 14:02:45 Laboratory Only Lab, Adc Fam Pob I Gabriela Sutherland [facility] [address] .114 [id number] [facility] 2020-07-06 13:40:00 2020-07-06 13:40:[address] SUTHERLAND GABRIELA [facility] [id number] [facility] 2020-02-04 00:00:00 2020-02-04 00:00:00 Patient Secure Msg Doctor Unassigned, [place] [facility] 1.0.114 [id number] [facility] 2020-02-03 10:38:19 2020-02-03 10:58:19 Laboratory Only Lab, [facility] [address] 1.114 [id number] [facility] 2020-02-03 10:38:19 2020-02-03 10:58:19 Laboratory Only Lab, [facility] [address] 1.114 [id number] 2020-02-03 10:40:00 2020-02-03 10:40:[address] SUTHER[place] GABRIELA [facility] [id number] [facility]
[2023-10-30] MEDS ORDERED: ASPIRIN 81 MG CHEWABLE TABLET ONE (22:30)
[2023-10-30 22:38] LABS: Absolute Basophils 0.2 K/uL (0-0.5); Absolute Eosinophils 0.2 K/uL (0-0.5); Absolute Lymphocytes (CBC) 3.7 K/uL (0.7-4.9); Absolute Monocytes 1.3 K/uL (0.1-1.3); Absolute Neutrophil 8.8 K/uL (1.8-8.0); Basophils % 1.3 % (0-1.3); Eosinophils % 1.6 % (0-4.4); Lymphocytes % 26.1 % (15.3-44.8); MCH 32.4 pg (27.0-35.0); MCHC 34.9 g/dL (32.0-36.0); MCV 92.9 fL (80-100); MPV 7.7 fL (7.6-11.3); Monocytes % 9.3 % (3.3-12.3); Neutrophils % 61.7 % (41.7-73.7); Platelets 379 thou/uL (152-406); RBC Red Blood Cell Count 4.94 M/uL (4.33-5.43); Red Cell Distribution Width 12.6 % (12.1-15.2)
[2023-10-30 22:54] LABS: Anion Gap 10.3 mEq/L (5.0-15.0); Potassium 3.3 mEq/L (3.5-5.1); Troponin High Sensitivity 7.7 pg/mL (<58.9)
[2023-10-30 23:59] LABS: Magnesium 1.9 mg/dL (1.6-2.4)
[2023-10-31] MEDS ORDERED: POTASSIUM CL SA 10 MEQ TAB PO ONE (00:49)
--- NOTE | 2023-10-31 01:54 | ER ---
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 Coronavirus as6 screen: At this time, the client does not indicate any symptoms associated with coronavirus-19. Ebola Screen: No symptoms or risks identified at this time. Initial Sepsis Screen: Does the patient meet any 2 criteria? No. Patient's initial sepsis screen is negative. Does the patient have a suspected source of infection? No. Patient's initial sepsis screen is negative. Risk Assessment: Do you want to hurt yourself or someone else? Patient reports no desire to harm self or others. Onset of symptoms was October 30, 2023 at 21:00. 22:08 Acuity: ERLINDA 2 as6 22:08 Method Of Arrival: Ambulatory as6 Triage Assessment: 22:10 General: Appears in no apparent distress. Behavior is calm, cooperative. Pain: as6 Complains of pain in chest. Cardiovascular: Reports chest pain, shortness of breath. Historical: - Allergies: 22:09 PROPOFOL; as6 22:09 Latex; as6 22:09 Hydrocodone-Acetaminophen; mild itch; as6 22:09 Tape; as6 22:09 Morphine; as6 - PMHx: 22:09 Asthma; Bronchitis; Cellulitis; Hypercholesterolemia; Hypertension; Pneumonia; as6 Congestive heart failure; - PSHx: 22:09 knee; Appendectomy; as6 - Immunization history:: Adult Immunizations up to date. - Infectious Disease History:: Denies. - Social history:: Smoking status: Patient reports use of chewing tobacco. - History obtained from: . Screenin:32 [facility] ED Fall Risk Assessment (Adult) History of falling in the last 3 months, bm8 including since admission No falls in past 3 months (0 pts) Confusion or Disorientation No (0 pts) Intoxicated or Sedated No (0 pts) Impaired Gait No (0 pts) Mobility Assist Device Used No (0 pt) Altered Elimination No (0 pt) Score/Fall Risk Level 0 - 2 = Low Risk Oriented to surroundings, Maintained a safe environment, Educated pt \T\ family on fall prevention, incl call for assistance when getting out of bed. Abuse screen: Denies threats or abuse. Nutritional screening: No deficits noted. Tuberculosis screening: No symptoms or risk factors identified. Assessment: 22:32 Reassessment: Patient appears in no apparent distress at this time. Patient and/or bm8 family updated on plan of care and expected duration. Pain level reassessed. Patient is alert, oriented x 3, equal unlabored respirations, skin warm/dry/pink. General: Appears in no apparent distress. comfortable, Behavior is cooperative, appropriate for age, anxious. Pain: Complains of pain in chest and neck Pain does not radiate. Pain currently is 0 out of 10 on a pain scale. at worst was 8 out of 10 on a pain scale. Quality of pain is described as discomfort Pain began 2 hours ago. Neuro: Level of Consciousness is awake, alert, obeys commands, Oriented to person, place, time, situation, Appropriate for age. Cardiovascular: Reports chest pain, Heart tones S1 S2 present Capillary refill < 3 seconds Patient's skin is warm and dry. Rhythm is sinus rhythm. Respiratory: Airway is patent Respiratory effort is even, unlabored, Respiratory pattern is regular, symmetrical, Breath sounds are clear bilaterally. GI: No signs and/or symptoms were reported involving the gastrointestinal system. : No signs and/or symptoms were reported regarding the genitourinary system. EENT: No signs and/or symptoms were reported regarding the EENT system. Derm: No signs and/or symptoms reported regarding the dermatologic system. Musculoskeletal: No signs and/or symptoms reported regarding the musculoskeletal system. 10/30 00:29 Reassessment: Patient appears in no apparent distress at this time. Patient and/or bm8 family updated on plan of care and expected duration. Pain level reassessed. Patient is alert, oriented x 3, equal unlabored respirations, skin warm/dry/pink. Patient states feeling better. Patient states symptoms have improved. Cardiovascular: Reports chest pain, a heart burn like pain that is just noticeable. Capillary refill < 3 seconds Patient's skin is warm and dry. Rhythm is sinus rhythm. Respiratory: Airway is patent Respiratory effort is even, unlabored, Respiratory pattern is regular, symmetrical. 00:58 Reassessment: redrew repeat trop. bm8 02:12 Reassessment: Patient appears in no apparent distress at this time. Patient and/or bm8 family updated on plan of care and expected duration. Pain level reassessed. Patient is alert, oriented x 3, equal unlabored respirations, skin warm/dry/pink. Patient denies pain at this time. Patient states feeling better. Patient states symptoms have improved. Vital Signs: 10/29 22:08 BP 137 / 93; Pulse 83; Resp 18 S; Temp 98(TE); Pulse Ox 98% ; Weight 154.22 kg (R); as6 Height 5 ft. 10 in. (R); Pain 6/10; 10/30 00:31 BP 123 / 78; Pulse 68; Resp 17; Temp 98; Pulse Ox 97% ; Pain 2/10; bm8 02:12 BP 127 / 75; Pulse 66; Resp 16; Temp 98.2; Pulse Ox 96% on R/A; Pain 0/10; bm8 10/29 22:08 Body Mass Index 48.78 (154.22 kg, 177.8 cm) as6 10/29 22:08 Pain Scale: Adult as6 10/30 00:31 Pain Scale: Adult bm8 02:12 Pain Scale: Adult bm8 [place] Coma Score: 10/29 22:32 Eye Response: spontaneous(4). Motor Response: obeys commands(6). Verbal Response: bm8 oriented(5). Total: 15. 10/30 00:31 Eye Response: spontaneous(4). Motor Response: obeys commands(6). Verbal Response: bm8 oriented(5). Total: 15. 02:12 Eye Response: spontaneous(4). Motor Response: obeys commands(6). Verbal Response: bm8 oriented(5). Total: 15. ED Course: 10/29 22:07 Patient arrived in ED. ra3 22:08 Arm band placed on right wrist. as6 22:09 Triage completed. as6 22:15 Ramesh Brice, RN is Primary Nurse. bm8 22:20 Iain Rogers is Attending Physician. ci 22:20 EKG done, by ED staff, reviewed by Chizite Iheonunekwu. as6 22:32 Patient has correct armband on for positive identification. Placed in gown. Bed in low bm8 position. Call light in reach. Side rails up X2. Adult w/ patient. Client placed on continuous cardiac and pulse oximetry monitoring. NIBP monitoring applied. court monitor on. Pulse ox on. NIBP on. Door closed. Noise minimized. Verbal reassurance given. Head of bed elevated. 22:32 No provider procedures requiring assistance completed. Initial lab(s) drawn, by , bmJordi sent to lab. Inserted saline lock: 20 gauge in right forearm, using aseptic technique. Blood collected. 22:32 O2 via pt on room air. bm8 22:50 XRAY Chest (1 view) In Process Unspecified. EDMS 10/30 00:25 CT Chest Wo Con In Process Unspecified. EDMS 02:12 Provided Education on: post er care. bm8 02:12 IV discontinued, intact, bleeding controlled, No redness/swelling at site. Pressure bm8 dressing applied. Administered Medications: 10/29 22:37 Drug: Aspirin PO Chewable Tablet 324 mg PO once; 81 mg tablets x 4 Route: PO; bm8 10/30 00:31 Follow up: Response: No adverse reaction bm8 00:58 Drug: Potassium Chloride PO 40 mEq PO once Route: PO; bm8 02:14 Follow up: Response: No adverse reaction bm8 Medication: 10/29 22:32 VIS not applicable for this client. bm8 Outcome: 10/30 01:53 Discharge ordered by . alin 02:12 Discharged to home ambulatory, bm8 02:12 Condition: stable 02:12 Discharge instructions given to patient, family, Instructed on discharge instructions, follow up and referral plans. medication usage, safety practices, Demonstrated understanding of instructions, follow-up care, medications, 02:14 Patient left the ED. bm8 Signatures: Dispatcher [employer] Fred Wharton, RN RN as6 Iain Rogers Ruby ra3 Ramesh Brice, RN RN bm8
--- NOTE | 2023-10-31 01:54 | EDPHYS ---
Physician Documentation [facility] Name: Rene Killian Jr Age: 43 yrs Sex: Male : 1980 Arrival Date: 10/30/2023 Time: 22:04 Bed 14 Private MD: ED Physician Iain Rogers HPI: 10/29 23:00 This 43 yrs old Male presents to ER via Ambulatory with complaints of Chest Tightness, ci Stiff Neck. 23:00 Patient is a 43-year-old male with PMH asthma, bronchitis, hyperlipidemia, ci hypertension, newly diagnosed CHF who presents to the ED with chief complaint of chest pain that began an hour prior to arrival. Patient states that he was at home and his heart started pounding, then he broke out in a sweat developed chest discomfort that went into his neck. 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 He was recently diagnosed with CHF last Monday now on HCTZ and losartan. at bedside concerned for possible anxiety, they just had their foster child taken away from them. Historical: - Allergies: 22:09 PROPOFOL; as6 22:09 Latex; as6 22:09 Hydrocodone-Acetaminophen; mild itch; as6 22:09 Tape; as6 22:09 Morphine; as6 - PMHx: 22:09 Asthma; Bronchitis; Cellulitis; Hypercholesterolemia; Hypertension; Pneumonia; as6 Congestive heart failure; - PSHx: 22:09 knee; Appendectomy; as6 - Immunization history:: Adult Immunizations up to date. - Infectious Disease History:: Denies. - Social history:: Smoking status: Patient reports use of chewing tobacco. - History obtained from: . ROS: 23:00 Constitutional: Negative for fever, chills, and weight loss, Abdomen/GI: Negative for ci abdominal pain, nausea, vomiting, diarrhea, and constipation, 23:00 Cardiovascular: Positive for chest pain, palpitations, Negative for edema, orthopnea, 23:00 Respiratory: Negative for cough, orthopnea, shortness of breath, wheezing, Exam: 23:00 Constitutional: This is a well developed, well nourished patient who is awake, alert, ci and in no acute distress. Head/Face: Normocephalic, atraumatic. Eyes: Pupils equal round and reactive to light, extra-ocular motions intact. Lids and lashes normal. Conjunctiva and sclera are non-icteric and not injected. Cornea within normal limits. Periorbital areas with no swelling, redness, or edema. ENT: Nares patent. No nasal discharge, no septal abnormalities noted. Tympanic membranes are normal and external auditory canals are clear. Oropharynx with no redness, swelling, or masses, exudates, or evidence of obstruction, uvula midline. Mucous membranes moist. Neck: Trachea midline, no thyromegaly or masses palpated, and no cervical lymphadenopathy. Supple, full range of motion without nuchal rigidity, or vertebral point tenderness. No Meningismus. Chest/axilla: Normal chest wall appearance and motion. Nontender with no deformity. No lesions are appreciated. Cardiovascular: Regular rate and rhythm with a normal S1 and S2. No gallops, murmurs, or rubs. Normal PMI, no JVD. No pulse deficits. Respiratory: Lungs have equal breath sounds bilaterally, clear to auscultation and percussion. No rales, rhonchi or wheezes noted. No increased work of breathing, no retractions or nasal flaring. Abdomen/GI: Soft, non-tender, with normal bowel sounds. No distension or tympany. No guarding or rebound. No evidence of tenderness throughout. Back: No spinal tenderness. No costovertebral tenderness. Full range of motion. Skin: Warm, dry with normal turgor. Normal color with no rashes, no lesions, and no evidence of cellulitis. MS/ Extremity: Pulses equal, no cyanosis. Neurovascular intact. Full, normal range of motion. Neuro: Awake and alert, GCS 15, oriented to person, place, time, and situation. Cranial nerves II-XII grossly intact. Motor strength 5/5 in all extremities. Sensory grossly intact. Cerebellar exam normal. Normal gait. Psych: Awake, alert, with orientation to person, place and time. Behavior, mood, and affect are within normal limits. 23:00 ECG was reviewed by the Attending Physician. EKG shows normal sinus rhythm, HR 86, QTc ci 414 ms, no acute ischemic changes Vital Signs: 22:08 BP 137 / 93; Pulse 83; Resp 18 S; Temp 98(TE); Pulse Ox 98% ; Weight 154.22 kg (R); as6 Height 5 ft. 10 in. (R); Pain 6/10; 10/30 00:31 BP 123 / 78; Pulse 68; Resp 17; Temp 98; Pulse Ox 97% ; Pain 2/10; bm8 02:12 BP 127 / 75; Pulse 66; Resp 16; Temp 98.2; Pulse Ox 96% on R/A; Pain 0/10; bm8 10/29 22:08 Body Mass Index 48.78 (154.22 kg, 177.8 cm) as6 10/29 22:08 Pain Scale: Adult as6 10/30 00:31 Pain Scale: Adult bm8 02:12 Pain Scale: Adult bm8 [place] Coma Score: 10/29 22:32 Eye Response: spontaneous(4). Motor Response: obeys commands(6). Verbal Response: bm8 oriented(5). Total: 15. 10/30 00:31 Eye Response: spontaneous(4). Motor Response: obeys commands(6). Verbal Response: bm8 oriented(5). Total: 15. 02:12 Eye Response: spontaneous(4). Motor Response: obeys commands(6). Verbal Response: bm8 oriented(5). Total: 15. MDM: 10/29 22:21 Patient medically screened. ci 23:00 Differential diagnosis: abnormal EKG, acute myocardial infarction, coronary artery ci disease congestive heart failure pericarditis, stable angina, unstable angina. HEART Score: History: Moderately Suspicious (1), ECG: Normal (0), Age: < or = 45 years (0), Risk Factors: 1 or 2 risk factors (1), [Hypercholesterolemia] [Hypertension] Troponin: < or = 1 x Normal Limit (0), Total Score = 2. The patient was given aspirin in the Emergency Department. Data reviewed: vital signs, nurses notes, old medical records. Consideration of Admission/Observation. Independent interpretation of the following test(s) in the Emergency Department EKG: See my EKG interpretation above. Historians other than the Patient: Spouse/Significant Other: reports possible anxiety.. Care significantly affected by the following chronic conditions: Hypertension. Counseling: I had a detailed discussion with the patient and/or guardian regarding the historical points, exam findings, and any diagnostic results supporting the discharge/admit diagnosis, lab results, radiology results, the need for outpatient follow up, to return to the emergency department if symptoms worsen or persist or if there are any questions or concerns that arise at home. ED course: Patient arrived to the ED hemodynamically stable and in no acute distress. Reports left-sided chest discomfort and pounding that radiated into the neck. Denies any neck stiffness from it. EKG shows normal sinus rhythm without acute ischemic changes, high-sensitivity troponin negative x 2. Recently diagnosed with CHF, chest x-ray concerning for increased interstitial markings of the left lung, recommendations to obtain CT chest. CT chest was obtained which showed a left posterior lateral pleural thickening and calcification, gallstones with no evidence of acute cholecystitis. Upon reassessment, chest pain improved. Stable for discharge with outpatient follow-up with cardiology.. 10/29 22:21 Order name: Basic Metabolic Panel; Complete Time: 00:08 ci 10/29 22:59 Interpretation: Abnormal: K 3.3. ci 10/29 22:21 Order name: CBC with Diff; Complete Time: 22:59 ci 10/30 01:34 Interpretation: Abnormal: WBC 14.30; Nonspecific. ci 10/29 22:21 Order name: Troponin HS; Complete Time: 00:08 ci 10/29 22:59 Interpretation: Within normal limits. ci 10/29 23:49 Order name: NT PRO-BNP; Complete Time: 00:08 EDMS 10/29 23:49 Order name: Magnesium; Complete Time: 00:08 EDMS 10/30 00:42 Order name: Troponin HS; Complete Time: 01:51 ci 10/29 22:21 Order name: XRAY Chest (1 view) ci 10/29 23:49 Order name: CT Chest Wo Con ci 10/29 22:21 Order name: EKG; Complete Time: 22:22 ci 10/29 22:21 Order name: Cardiac monitoring; Complete Time: 22:37 ci 10/29 22:21 Order name: EKG - Nurse/Tech; Complete Time: 22:37 ci 10/29 22:21 Order name: IV Saline Lock; Complete Time: 22:37 ci 10/29 22:21 Order name: Labs collected and sent; Complete Time: 22:37 ci 10/29 22:21 Order name: O2 Per Protocol; Complete Time: 22:37 ci 10/29 22:21 Order name: O2 Sat Monitoring; Complete Time: 22:37 ci Administered Medications: 22:37 Drug: Aspirin PO Chewable Tablet 324 mg PO once; 81 mg tablets x 4 Route: PO; bm8 10/30 00:31 Follow up: Response: No adverse reaction bm8 00:58 Drug: Potassium Chloride PO 40 mEq PO once Route: PO; bm8 02:14 Follow up: Response: No adverse reaction bm8 Disposition Summary: 10/31/23 01:53 Discharge Ordered Notes: Location: Home ci Condition: Stable ci Diagnosis - Chest pain, unspecified ci - Hypokalemia ci - Other disorders of lung - Pleural thickening ci - Other cholelithiasis without obstruction ci Followup: ci - With: Private Physician - When: 2 - 3 days - Reason: Recheck today's complaints, Re-evaluation by your physician Discharge Instructions: - Discharge Summary Sheet ci - Cholelithiasis, [id number] ci - Nonspecific Chest Pain, Adult, [id number] ci - Hypokalemia ci Forms: - Medication Reconciliation Form ci - Antibiotic Education ci - Prescription Opioid Use ci - Patient Portal Instructions ci - Leadership Thank You Letter ci Signatures: Dispatcher [employer] [facility] Fred Keller, RN RN as6 Iain Rogers Ramesh Brice RN RN bm8 Corrections: (The following items were deleted from the chart) 10/29 23:02 23:02 LAB ADD ON+C.LAB.BRZ ordered. [facility] EDOR 23:50 23:50 Thorax Wo Con+CT.RAD.BRZ ordered. [facility] EDOR 10/30 00:41 10/29 23:00 Patient is a 43-year-old male with PMH asthma, bronchitis, hyperlipidemia, ci hypertension, newly diagnosed CHF who presents to the ED with chief complaint of chest pain that began an hour prior to arrival. Patient states that he was at home and his heart started pounding, then he broke out in a sweat developed chest discomfort that went into his neck. 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 He was recently diagnosed with CHF last Monday now on HCTZ and losartan. ci 10/30 00:43 00:43 Troponin High Sensitivity+C.LAB.BRZ ordered. [facility] EDOR 01:33 10/29 22:59 Abnormal: WBC 14.30. ci ci 04/23 01:34 10/29 22:59 Abnormal: WBC 14.30. ci ci
[2023-10-31 02:36] VITALS: BP 127/75; TEMP 98.2; O2SAT 96
--- NOTE | 2023-10-31 14:04 | RAD REPORT ---
EXAM DESCRIPTION: CT - Thorax Archana Mayen - 10/31/2023 3:40 am CLINICAL HISTORY: 43 years Male CHEST PAIN TECHNIQUE: Contiguous axial images obtained through the chest without IV contrast administration. MIP and reformatted images provided. This CT exam was performed according to our departmental dose-optimization program, which includes on e or more of the following dose reduction techniques: automated exposure control, adjustment of the m A and/or kV according to patient size, and/or use of iterative reconstruction technique. COMPARISON: No prior exams provided for comparison. FINDINGS: Left posterolateral pleural thickening and calcification. No pleural effusion or pneumotho rax. Mild adjacent scarring in the left lung periphery. The lungs are clear. The central airways are patent. The heart is normal in size without pericardial effusion. The aorta and central pulmonary vasculature are normal in caliber. No lymphadenopathy in the chest. Gallstones without evidence of acute cholecystitis. No acute osseous abnormality. IMPRESSION: Left posterolateral pleural thickening and calcification with mild adjacent scarring in the left lung periphery. No acute findings in the chest. Gallstones without evidence of acute cholecystitis. Electronically signed by: Roopa Turner MD 10/31/2023 12:51 AM CDT Due to temporary technical issues with the PACS/Fluency reporting system, reports are being signed by the in house radiologists without review as a courtesy to insure prompt reporting. The interpreting radiologist is fully responsible for the content of the report
--- NOTE | 2023-10-31 14:10 | RAD REPORT ---
EXAM DESCRIPTION: RAD - Chest Single View - 10/30/2023 10:48 pm CLINICAL HISTORY: 43 years Male, CHEST PAIN TECHNIQUE: 1 view (Single frontal view of the chest) COMPARISON: None. FINDINGS: Suboptimal exam due to patient's body habitus and radiographic technique. LINES AND TUBES: None. CARDIOVASCULAR STRUCTURES: Normal heart size. LUNGS: Increased interstitial markings of the left lung which may be artifactual due to positioning. Lateral skin fold artifact versus small left pleural effusion. PLEURA: No layering right pleural effusion. No pneumothorax. BONES: No acute osseous abnormality of the thorax. IMPRESSION: 1. Limited exam as described. 2. Increased interstitial markings of the left lung which may be artifactual versus asymmetric bindu a or infection. 3. Lateral skin fold artifact versus small left pleural effusion. 4. Follow-up PA and lateral views of the chest versus CT chest is recommended. Electronically signed by: Shawn Mak MD 10/30/2023 11:01 PM CDT Due to temporary technical issues with the PACS/Fluency reporting system, reports are being signed by the in house radiologists without review as a courtesy to insure prompt reporting. The interpreting radiologist is fully responsible for the content of the report.
== END 2023-10-31 02:14 | disposition home or self-care (01) ==
LOC: ER 22:04
DX: R07.9 Chest pain, unspecified (principal); E87.6 Hypokalemia; K80.80 Other cholelithiasis without obstruction; J98.4 Other disorders of lung; I50.9 Heart failure, unspecified; I10 Essential (primary) hypertension; Z88.5 Allergy status to narcotic agent; Z91.040 Latex allergy status; Z91.048 Other nonmedicinal substance allergy status
CPT/HCPCS: 36415; 71045; 71250; 80048; 83735; 83880; 84484; 85025; 93005